=== PATIENT | female | born 1945 | race Hispanic/Latino ===

== ENCOUNTER 2018-01-28 23:30 | Emergency (ER) | payer OTHER ==
[2018-01-29] MEDS ORDERED: HYDRALAZINE HCL 20 MG/ML VIAL ONE (00:42)
[2018-01-29 00:50] LABS: Hematocrit 36.3 % (36.0-45.0); RBC Red Blood Cell Count 3.96 M/uL (3.86-4.86)
[2018-01-29 00:51] LABS: Absolute Lymphocytes (CBC) 2.3 K/uL (0.7-4.9); Absolute Monocytes 0.5 K/uL (0.1-1.3); Absolute Neutrophil 4.7 K/uL (1.8-8.0); Basophils % 1.3 % (0-1.3); Eosinophils % 3.2 % (0-4.4); Lymphocytes % 29.1 % (15.3-44.8); MCH 31.5 pg (27.0-35.0); MCV 91.8 fL (80-100); MPV 9.4 fL (7.6-11.3); Protime INR 0.89
[2018-01-29 01:30] LABS: Potassium 3.9 mEq/L (3.6-5.0)
--- NOTE | 2018-01-29 01:32 | EDPHYS ---
Physician Documentation [facility] Name: Eloise Funes Age: 72 yrs Sex: Female : 1945 Arrival Date: 01/28/2018 Time: 23:38 Bed 16 Private MD: Gilles Miller T ED Physician Homer Pruitt HPI: 01/29 00:39 This 72 yrs old Female presents to ER via EMS with complaints of High Blood tw4 Pressure. 00:39 The patient has elevated blood pressure and discovered this at home, with a home tw4 device. Onset: The symptoms/episode began/occurred just prior to arrival. Associated signs and symptoms: Pertinent positives: nausea, vertigo. Severity of symptoms: At its worst the blood pressure was severe, 240 mm Hg. The patient has experienced similar episodes in the past, a few times. Historical: - Allergies: 01/28 23:56 shrimp; ea - Home Meds: 23:56 metoprolol tartrate 100 mg Oral tab [Active]; Metformin Oral [Active]; Aspirin Oral ea [Active]; - PMHx: 23:56 Diabetes - IDDM; Hypertension; ea - PSHx: 23:56 None; ea - Immunization history:: Adult Immunizations up to date. - Social history:: Smoking status: Patient/guardian denies using tobacco. ROS: 01/29 00:39 Constitutional: Negative for fever, chills, and weight loss, Cardiovascular: Negative tw4 for chest pain, palpitations, and edema, Respiratory: Negative for shortness of breath, cough, wheezing, and pleuritic chest pain, Abdomen/GI: Negative for abdominal pain, nausea, vomiting, diarrhea, and constipation, Back: Negative for injury and pain, Skin: Negative for injury, rash, and discoloration. Neuro: Positive for dizziness, headache. Exam: 00:39 Constitutional: This is a well developed, well nourished patient who is awake, alert, tw4 and in no acute distress. Chest/axilla: Normal chest wall appearance and motion. Nontender with no deformity. No lesions are appreciated. Cardiovascular: Regular rate and rhythm with a normal S1 and S2. No gallops, murmurs, or rubs. Normal PMI, no JVD. No pulse deficits. Respiratory: Lungs have equal breath sounds bilaterally, clear to auscultation and percussion. No rales, rhonchi or wheezes noted. No increased work of breathing, no retractions or nasal flaring. Abdomen/GI: Soft, non-tender, with normal bowel sounds. No distension or tympany. No guarding or rebound. No evidence of tenderness throughout. Back: No spinal tenderness. No costovertebral tenderness. Full range of motion. MS/ Extremity: Pulses equal, no cyanosis. Neurovascular intact. Full, normal range of motion. Neuro: Awake and alert, GCS 15, oriented to person, place, time, and situation. Cranial nerves II-XII grossly intact. Motor strength 5/5 in all extremities. Sensory grossly intact. Cerebellar exam normal. Normal gait. Vital Signs: 01/28 23:30 BP 172 / 86; Pulse 72; Resp 19; Temp 98.8(O); Pulse Ox 100% on R/A; Weight 59.42 kg; ea Height 4 ft. 10 in. (147.32 cm); Pain 5/10; 01/29 01:28 BP 133 / 52; Pulse 68; Resp 18; Pulse Ox 99% on R/A; Pain 3/10; ea 01/28 23:30 Body Mass Index 27.38 (59.42 kg, 147.32 cm) ea MDM: 01/28 23:42 Patient medically screened. 01/29 01:33 Differential diagnosis: hypertensive crisis, Malignant HTN. Data reviewed: vital signs, tw4 nurses notes. Counseling: I had a detailed discussion with the patient and/or guardian regarding: the historical points, exam findings, and any diagnostic results supporting the discharge/admit diagnosis. Special discussion: I discussed with the patient/guardian in detail that at this point there is no indication for admission to the hospital. It is understood, however, that if the symptoms persist or worsen the patient needs to return immediately for re-evaluation. 01/29 00:32 Order name: Basic Metabolic Panel 01/29 00:32 Order name: BNP 01/29:32 Order name: CBC with Diff 01/29 00:32 Order name: Ckmb 01/29 00:32 Order name: CPK 01/29 00:32 Order name: LFT's 01/29 00:32 Order name: Magnesium 01/29 00:32 Order name: PT-INR 01/29 00:32 Order name: Ptt, Activated 01/29 00:32 Order name: Troponin (emerg Dept Use Only) 01/29 00:32 Order name: XRAY Chest (1 view) 01/29 00:32 Order name: EKG; Complete Time: 00:33 01/29 00:32 Order name: Cardiac monitoring; Complete Time: 01/29 00:32 Order name: EKG - Nurse/Tech; Complete Time: 01/29 00:32 Order name: IV Saline Lock; Complete Time: 01/29 00:32 Order name: Labs collected and sent; Complete Time: 01/29:32 Order name: O2 Per Protocol; Complete Time: 01/29 00:32 Order name: O2 Sat Monitoring; Complete Time: Administered Medications: 00:40 Drug: hydrALAZINE 10 mg Route: IV; Rate: bolus; Site: right antecubital; ea 01:30 Follow up: Response: No adverse reaction; Blood pressure is lowered; IV Status: ea Completed infusion Disposition: 01/29/18 01:31 Discharged to Home. Impression: Hypertension secondary to other renal disorders. - Condition is Stable. - Discharge Instructions: Hypertension, Hypertension, [id number], Vertigo, Ompp-oz-Atzo. - Prescriptions for Meclizine 25 mg Oral Tablet - take 1 tablet by ORAL route every 8 hours As needed; 30 tablet. Zofran 4 mg Oral Tablet - take 1 tablet by ORAL route every 12 hours As needed; 20 tablet. - Medication Reconciliation Form, Thank You Letter, Antibiotic Education, Prescription Opioid Use form. - Follow up: Gilels Miller MD; When: As needed; Reason: Recheck today's complaints, Continuance of care, Re-evaluation by your physician. - Problem is new. - Symptoms have improved. Signatures: Dispatcher [employer] EDTiff Polo, RN RN Homer Richter MD MD tw4 Corrections: (The following items were deleted from the chart) 01:54 01:31 01/29/2018 01:31 Discharged to Home. Impression: Hypertension secondary to other ea renal disorders. Condition is Stable. Forms are Medication Reconciliation Form, Thank You Letter, Antibiotic Education, Prescription Opioid Use. Follow up: Gilles Miller; When: As needed; Reason: Recheck today's complaints, Continuance of care, Re-evaluation by your physician. Problem is new. Symptoms have improved. tw4
--- NOTE | 2018-01-29 01:32 | ER ---
Nurse's Notes [facility] Name: Eloise Funes Age: 72 yrs Sex: Female : 1945 Arrival Date: 01/28/2018 Time: 23:38 Bed 16 Private MD: Gilles Miller T Diagnosis: Hypertension secondary to other renal disorders Presentation: 01/28 23:30 Presenting complaint: EMS states: Upon arrival pt complaining of dizziness, headache ea and high blood pressure. Pt reported she was just sitting on the cough when she started to feel dizzy. BP upon arrival was 230/100. Transition of care: patient was not received from another setting of care. Onset of symptoms was January 28, 2018. Risk Assessment: Do you want to hurt yourself or someone else? Patient reports no desire to harm self or others. Initial Sepsis Screen: Does the patient meet any 2 criteria? No. Patient's initial sepsis screen is negative. Does the patient have a suspected source of infection? No. Patient's initial sepsis screen is negative. Care prior to arrival: IV initiated. 20 GA, in the right antecubital area. 23:30 Method Of Arrival: EMS: [facility] ea 23:30 Acuity: DEIRDRE 3 ea Triage Assessment: 23:30 General: Appears uncomfortable, Behavior is cooperative, agitated. Pain: Complains of ea pain in headache Pain currently is 5 out of 10 on a pain scale. Quality of pain is described as pressure, Pain began 30 min ago. EENT: No signs and/or symptoms were reported regarding the EENT system. Neuro: Level of Consciousness is awake, alert, obeys commands, Oriented to person, place, time, situation. Cardiovascular: Heart tones S1 S2 present Patient's skin is warm and dry. Cardiovascular: Parent/caregiver reports patient has had chest pain, diaphoresis, nausea, shortness of breath, dizziness since Pt reports before calling EMS she was having nausea, SOB, chest pain and was sweating, Pt reports the only symptom she has now is "headache and a little bit of dizziness". Respiratory: Airway is patent Respiratory effort is even, unlabored, Respiratory pattern is regular, symmetrical, Breath sounds are clear bilaterally. GI: Abdomen is non-distended, Bowel sounds present X 4 quads. : No signs and/or symptoms were reported regarding the genitourinary system. Derm: Skin is pink, warm \\T\\ dry. Musculoskeletal: No signs and/or symptoms reported regarding the musculoskeletal system. Historical: - Allergies: 23:56 shrimp; ea - Home Meds: 23:56 metoprolol tartrate 100 mg Oral tab [Active]; Metformin Oral [Active]; Aspirin Oral ea [Active]; - PMHx: 23:56 Diabetes - IDDM; Hypertension; ea - PSHx: 23:56 None; ea - Immunization history:: Adult Immunizations up to date. - Social history:: Smoking status: Patient/guardian denies using tobacco. Screenin:57 Abuse screen: Denies threats or abuse. Nutritional screening: No deficits noted. ea Tuberculosis screening: No symptoms or risk factors identified. Fall Risk None identified. Assessment: 01/29 01:27 Reassessment: Patient and/or family updated on plan of care and expected duration. Pain ea level reassessed. Patient is alert, oriented x 3, equal unlabored respirations, skin warm/dry/pink. Patient states feeling better. Patient states symptoms have improved. 01:52 Reassessment: Patient and/or family updated on plan of care and expected duration. Pain ea level reassessed. Patient is alert, oriented x 3, equal unlabored respirations, skin warm/dry/pink. Discharge instructions given to patient, verbalized the understanding of instruction. Patient denies pain at this time. Patient states feeling better. Patient states symptoms have improved. Vital Signs: 01/28 23:30 BP 172 / 86; Pulse 72; Resp 19; Temp 98.8(O); Pulse Ox 100% on R/A; Weight 59.42 kg; ea Height 4 ft. 10 in. (147.32 cm); Pain 5/10; 01/29 01:28 BP 133 / 52; Pulse 68; Resp 18; Pulse Ox 99% on R/A; Pain 3/10; ea 01/28 23:30 Body Mass Index 27.38 (59.42 kg, 147.32 cm) ea ED Course: 01/28 23:30 Patient has correct armband on for positive identification. Placed in gown. Bed in low ea position. Call light in reach. Side rails up X2. 23:30 Arm band placed on right wrist. Patient placed in an exam room, on a stretcher, on ea manager truck, on pulse oximetry. EKG completed in triage. Results shown to MD. 23:38 Patient arrived in ED. am2 23:38 Gilles Miller MD is Private Physician. am2 23:42 Homer Pruitt MD is Attending Physician. tw4 23:50 Tiff Hearn, RN is Primary Nurse. ea 23:54 Triage completed. ea 01/29 00:47 X-ray completed. Portable x-ray completed in exam room. Patient tolerated procedure kw well. 00:49 XRAY Chest (1 view) In Process Unspecified. EDMS 00:50 Maintain EMS IV. Dressing intact. Good blood return noted. Site clean \\T\\ dry. Gauge \\T\\ ea site: 20 G to right AC. 01:31 Gilles Miller MD is Referral Physician. tw4 01:53 No provider procedures requiring assistance completed. IV discontinued, intact, ea bleeding controlled, Pressure dressing applied. Administered Medications: 00:40 Drug: hydrALAZINE 10 mg Route: IV; Rate: bolus; Site: right antecubital; ea 01:30 Follow up: Response: No adverse reaction; Blood pressure is lowered; IV Status: ea Completed infusion Outcome: :31 Discharge ordered by . tw4 01:53 Discharged to home via wheelchair, with family. ea 01:53 Condition: improved 01:53 Discharge instructions given to patient, Instructed on discharge instructions, follow up and referral plans. medication usage, Demonstrated understanding of instructions, follow-up care, medications, Prescriptions given X 2. 01:54 Patient left the ED. ea Signatures: Dispatcher [employer] EDMS Gale Boo Amanda 2 Tiff Hearn, Homer Hoover RN, ea, MD MD 4
[2018-01-29 01:37] LABS: Albumin 3.9 g/dL (3.2-5.5); Bilirubin Direct 0.1 mg/dL (0-0.2); Bilirubin Total 0.9 mg/dL (0.3-1.2); Protein, Total 6.7 g/dL (6.0-8.3)
[2018-01-29 01:39] LABS: CKMB Creatine Kinase MB 1.7 ng/ml (0.3-4.0)
[2018-01-29 01:58] VITALS: TEMP 98.8
[2018-01-29 01:59] VITALS: BP 133/52; O2SAT 99
--- NOTE | 2018-01-29 06:56 | EKG ---
Test Date: 2018-01-28 Test Time: 23:43:57 Cw Operator: LAISHA MEASUREMENT RESULTS: Intervals: Rate: 69 RI: 126 QRSD: 76 QT: 426 QTc: 456 [place]: P: 69 RI: 126 QRS: 37 T: 47 INTERPRETIVE STATEMENTS: Normal sinus rhythm Normal ECG Compared to ECG 08/17/2015 07:02:39 No significant changes Electronically Signed On 01-29-18 06:55:15 CDT by Maciel Yates
--- NOTE | 2018-01-29 08:19 | RAD REPORT ---
EXAM DESCRIPTION: RAD - Chest Single View - 01/29/2018 12:49 am CLINICAL HISTORY: Diabetes, hypertension COMPARISON: 12/11/2015 FINDINGS: Portable technique limits examination quality. The lungs are grossly clear. The heart is normal in size. No displaced fractures. IMPRESSION: No acute intrathoracic process suspected.
== END 2018-01-29 01:54 | disposition home or self-care (01) ==
LOC: ER 23:30
DX: I15.1 Hypertension secondary to other renal disorders (principal); E11.9 Type 2 diabetes mellitus without complications; Z79.82 Long term (current) use of aspirin; Z91.013 Allergy to seafood
CPT/HCPCS: 36415; 71045; 80048; 80076; 82550; 82553; 83735; 83880; 84484; 85025; 85610; 85730; 93005; 96365; 99284; J0360

== ENCOUNTER 2019-04-18 12:27 | Emergency (ER) | payer OTHER ==
--- NOTE | 2019-04-18 13:47 | RAD REPORT ---
EXAM DESCRIPTION: CT - Head Brain Wo Cont - 04/18/2019 1:40 pm CLINICAL HISTORY: Frontal headache, right-sided neck pain COMPARISON: CT head August 2015 TECHNIQUE: Axial 5 mm thick images of the head were obtained without IV contrast. All CT scans are performed using dose optimization technique as appropriate and may include automated exposure control or mA/KV adjustment according to patient size. FINDINGS: No intracranial hemorrhage, mass, edema or shift of mid-line structures. No acute infarcti on changes seen. No abnormal extra-axial fluid collections. Ventricles are normal. No significant atr ophy or chronic ischemic change. Physiologic calcifications and arterial calcifications are present. Mastoid air cells and visualized portions of the paranasal sinuses are clear. No acute bony findings. IMPRESSION: Negative non-contrast CT head examination for acute or significant finding. No significant change from 2014.
[2019-04-18 14:07] LABS: Absolute Lymphocytes (CBC) 1.9 K/uL (0.7-4.9); Basophils % 0.5 % (0-1.3); Hematocrit 40.1 % (36.0-45.0); Lymphocytes % 22.2 % (15.3-44.8); MPV 8.8 fL (7.6-11.3); RBC Red Blood Cell Count 4.25 M/uL (3.86-4.86)
--- NOTE | 2019-04-18 14:11 | RAD REPORT ---
EXAM DESCRIPTION: RAD - Chest Single View - 04/18/2019 2:04 pm CLINICAL HISTORY: Right-sided chest shoulder and neck pain COMPARISON: January 2018 TECHNIQUE: AP portable chest image was obtained 1400 hours . FINDINGS: Lungs are clear. Heart and vasculature are normal. No measurable pleural effusion and no p neumothorax. No acute bony abnormality seen. No acute aortic findings suspected. IMPRESSION: No acute cardiopulmonary process. No significant change from comparison.
[2019-04-18] MEDS ORDERED: ACETAMINOPHEN 500 MG TAB ONE (14:15)
--- NOTE | 2019-04-18 14:25 | EKG ---
Test Date: 2019-04-18 Test Time: 12:50:47 [place] Worker Helper: LUIS MEASUREMENT RESULTS: Intervals: Rate: 73 NH: 130 QRSD: 68 QT: 402 QTc: 442 [place]: P: 37 NH: 130 QRS: 27 T: 43 INTERPRETIVE STATEMENTS: Normal sinus rhythm Normal ECG Compared to ECG 01/28/2018 23:43:57 No significant changes Electronically Signed On 04-18-19 14:24:46 CDT by Maciel Yates
[2019-04-18 14:32] LABS: BUN Blood Urea Nitrogen 21 mg/dL (7-18); Bicarbonate 27 mmol/L (21-32); Glucose Level 193 mg/dL (74-106); Potassium 4.6 mmol/L (3.5-5.1); Sodium Level 143 mmol/L (136-145); Troponin (Emerg Dept Use Only) < 0.02 ng/mL (0.0-0.045)
--- NOTE | 2019-04-18 15:33 | ER ---
Nurse's Notes [facility] Name: Eloise Funes Age: 73 yrs Sex: Female : 1945 Arrival Date: 04/18/2019 Time: 12:30 Bed 17 Private MD: Gilles Miller T Diagnosis: Hypertensive Urgency Presentation: 04/18 12:53 Presenting complaint: Patient states: was washing dishes and all of a sudden felt iw pain/air in right side of her neck, felt similar to swallowing a cold drink, then it was hard to breath, started coughing, and had a headache to frontal area, her neighbor came and checked her BP and it was 222/81, also started feeling midsternal chest pain, has hx of anxiety attacks but this felt different, pt still feels pain to right side of neck now. Transition of care: patient was not received from another setting of care. Onset of symptoms was April 18, 2019. Risk Assessment: Do you want to hurt yourself or someone else? Patient reports no desire to harm self or others. Initial Sepsis Screen: Does the patient meet any 2 criteria? No. Patient's initial sepsis screen is negative. Does the patient have a suspected source of infection? No. Patient's initial sepsis screen is negative. Care prior to arrival: None. 12:53 Method Of Arrival: Ambulatory iw 12:53 Acuity: DEIRDRE 3 iw Historical: - Allergies: 13: shrimp; iw 13: PENICILLINS; iw - Home Meds: 13:01 aspirin 81 mg oral TbEC once daily [Active]; metformin 500 mg oral tab 2 times per day iw [Active]; atorvastatin 20 mg oral tab 1 tab once daily [Active]; carvedilol 6.25 mg oral tab 1 tab 2 times per day [Active]; valsartan 320 mg oral tab 1 tab once daily [Active]; - PMHx: 13:01 Diabetes - NIDDM; Hypertension; Anxiety; "mini stroke"; iw - PSHx: 13: Hysterectomy; Cholecystectomy; iw - Immunization history:: Adult Immunizations not up to date. - Social history:: Smoking status: Patient/guardian denies using tobacco. - Ebola Screening: : Patient negative for fever greater than or equal to 101.5 degrees Fahrenheit, and additional compatible Ebola Virus Disease symptoms Patient denies exposure to infectious person Patient denies travel to an Ebola-affected area in the 21 days before illness onset No symptoms or risks identified at this time. Screenin:05 Abuse screen: Denies threats or abuse. Denies injuries from another. Nutritional aj1 screening: No deficits noted. Tuberculosis screening: No symptoms or risk factors identified. Assessment: 13:05 General: Appears in no apparent distress. uncomfortable, Behavior is calm, cooperative, aj1 appropriate for age. Pain: Complains of pain in face. Neuro: Level of Consciousness is awake, alert, obeys commands, Oriented to person, place, time, situation, Moves all extremities. Full function Speech is normal, Facial symmetry appears normal, Reports dizziness, headache. Cardiovascular: Patient's skin is warm and dry. Rhythm is sinus rhythm. Respiratory: Airway is patent Respiratory effort is even, unlabored, Respiratory pattern is regular, symmetrical. GI: No signs and/or symptoms were reported involving the gastrointestinal system. : No signs and/or symptoms were reported regarding the genitourinary system. EENT: No signs and/or symptoms were reported regarding the EENT system. Derm: No signs and/or symptoms reported regarding the dermatologic system. Skin is pink, warm \\T\\ dry. normal. Musculoskeletal: No signs and/or symptoms reported regarding the musculoskeletal system. Circulation, motion, and sensation intact. 14:05 Reassessment: Patient appears in no apparent distress at this time. No changes from aj1 previously documented assessment. Patient and/or family updated on plan of care and expected duration. Pain level reassessed. Patient is alert, oriented x 3, equal unlabored respirations, skin warm/dry/pink. 15:08 Reassessment: Patient appears in no apparent distress at this time. No changes from aj1 previously documented assessment. Patient and/or family updated on plan of care and expected duration. Pain level reassessed. Patient is alert, oriented x 3, equal unlabored respirations, skin warm/dry/pink. 16:10 Reassessment: Patient appears in no apparent distress at this time. No changes from aj1 previously documented assessment. Patient and/or family updated on plan of care and expected duration. Pain level reassessed. Patient is alert, oriented x 3, equal unlabored respirations, skin warm/dry/pink. Vital Signs: 12:58 BP 208 / 75; Pulse 84; Resp 16 S; Temp 98.4(TE); Pulse Ox 98% on R/A; Pain 8/10; iw 13:32 BP 172 / 59; Pulse 66; Resp 18; Pulse Ox 98% ; aj1 14:45 BP 166 / 42; Pulse 66; Resp 18; Pulse Ox 97% on R/A; aj1 15:45 BP 161 / 51; Pulse 66; Resp 18; Pulse Ox 100% ; aj1 16:00 BP 142 / 57; Pulse 68; Resp 18; Pulse Ox 100% ; aj1 16:15 BP 145 / 60; Pulse 66; Resp 18; Pulse Ox 100% on R/A; aj1 16:30 BP 142 / 61; Pulse 71; Resp 17; Pulse Ox 100% on R/A; aj1 NIH Stroke Scale Scores: 14:32 NIHSS Score: 0 jr8 ED Course: 12:30 Patient arrived in ED. as 12:31 Gilles Miller MD is Private Physician. as 12:56 Rey Guallpa [facility]. jr8 12:56 Av Almazan MD is Attending Physician. jr8 12:58 Triage completed. iw 12:58 Arm band placed on. iw 13:05 Patient has correct armband on for positive identification. Bed in low position. Call aj1 light in reach. Side rails up X 1. 13:05 athletic monitor on. Pulse ox on. NIBP on. aj1 13:05 No provider procedures requiring assistance completed. aj1 13:[address] via stretcher. vm2 13:31 Skye Alonzo, MARITZA is Primary Nurse. aj1 13:41 CT Head Brain wo Cont In Process Unspecified. EDMS 13:55 Initial lab(s) drawn, by me, sent to lab. Inserted saline lock: 22 gauge in right tm3 antecubital area, using aseptic technique. 14:02 X-ray completed. Portable x-ray completed in exam room. Patient tolerated procedure jb2 well. 14:07 XRAY Chest (1 view) In Process Unspecified. EDMS 15:32 Gilles Miller MD is Referral Physician. jr8 Administered Medications: 14:18 Drug: Tylenol 1000 mg Route: PO; aj1 16:44 Follow up: Response: No adverse reaction aj1 15:45 Drug: hydrALAZINE 10 mg Route: IV; Rate: calculated rate; Site: right antecubital; olesya 16:44 Follow up: Response: No adverse reaction; Blood pressure is lowered; IV Status: aj1 Completed infusion Outcome: 15:32 Discharge ordered by MD. fan 16:44 Patient left the ED. olesya NIH Stroke Scale - NIH Stroke Score Date: 04/18/2019 Time: 14:32 Total Score = 0 1a. Level of Consciousness (LOC) - 0(Alert) 1b. Level of Consciousness (LOC) (Year \\T\\ Age) - 0(Both) 1c. LOC Commands (Open \\T\\ Closes Eyes/Skilled Labor) - 0(Both) 2. Best Gaze (Lateral Gaze Paresis) - 0(Normal) 3. Visual Field Loss - 0(No visual loss) 4. Facial Palsy - 0(Normal) 5a. Left Arm: Motor (10-second hold) - 0(No drift) 5b. Right Arm: Motor (10-second hold) - 0(No drift) 6a. Left Leg: Motor (5-second hold - always test supine) - 0(No drift) 6b. Right Leg: Motor (5-second hold - always test supine) - 0(No drift) 7. Limb Ataxia (finger/nose \\T\\ heel/patterson - test with eyes open) - 0(Absent) 8. Sensory Loss (pinprick arms/legs/face) - 0(Normal) 9. Best Language: Aphasia (description/naming/reading) - 0(No aphasia) 10. Dysarthria (speech clarity - read or repeat words) - 0(Normal) 11. Extinction and Inattention (visual/tactile/auditory/spatial/personal) - 0(No abnormality) Initials: meng Signatures: Dispatcher [employer] Skye Vega, RN RN aj1 Arnel Tejada Jesse jb2 Martinez, Amelia as Williams, Irene, RN RN iw Roszak, Josh, PA PA jr8 Juju Romero
--- NOTE | 2019-04-18 15:34 | EDPHYS ---
Physician Documentation [facility] Name: Eloise Funes Age: 73 yrs Sex: Female : 1945 Arrival Date: 04/18/2019 Time: 12:30 Bed 17 Private MD: Gilles Miller T ED Physician Av Almazan HPI: 04/18 14:32 This 73 yrs old Female presents to ER via Ambulatory with complaints of High jr8 Blood Pressure, Headache, Neck Problem. 14:32 The patient has elevated blood pressure and discovered this at home. Onset: The jr8 symptoms/episode began/occurred acutely, today. Associated signs and symptoms: Pertinent positives: dizziness, headache, visual changes, sweating . Severity of symptoms: At its worst the blood pressure was moderate, in the emergency department the blood pressure is improved. The patient has not experienced similar symptoms in the past. The patient has not recently seen a physician. Patient stated that she was outside with family. Started to feel sweaty, dizzy, nauseated, had headache, and neck pain. Went inside to sit down. Family checked BP and found it to be in the 200s systolic. Came to ED for evaluation. Denies CP or shortness of breath . Historical: - Allergies: 13:01 shrimp; iw 13:01 PENICILLINS; iw - Home Meds: 13:01 aspirin 81 mg oral TbEC once daily [Active]; metformin 500 mg oral tab 2 times per day iw [Active]; atorvastatin 20 mg oral tab 1 tab once daily [Active]; carvedilol 6.25 mg oral tab 1 tab 2 times per day [Active]; valsartan 320 mg oral tab 1 tab once daily [Active]; - PMHx: 13:01 Diabetes - NIDDM; Hypertension; Anxiety; "mini stroke"; iw - PSHx: 13:01 Hysterectomy; Cholecystectomy; iw - Immunization history:: Adult Immunizations not up to date. - Social history:: Smoking status: Patient/guardian denies using tobacco. - Ebola Screening: : Patient negative for fever greater than or equal to 101.5 degrees Fahrenheit, and additional compatible Ebola Virus Disease symptoms Patient denies exposure to infectious person Patient denies travel to an Ebola-affected area in the 21 days before illness onset No symptoms or risks identified at this time. ROS: 14:32 Eyes: Negative for injury, pain, redness, and discharge, ENT: Negative for injury, jr8 pain, and discharge, Cardiovascular: Negative for chest pain, palpitations, and edema, Respiratory: Negative for shortness of breath, cough, wheezing, and pleuritic chest pain, Abdomen/GI: Negative for abdominal pain, nausea, vomiting, diarrhea, and constipation, Back: Negative for injury and pain, MS/Extremity: Negative for injury and deformity, Skin: Negative for injury, rash, and discoloration. 14:32 Neck: Positive for pain at rest, Negative for pain with movement, stiffness, swelling, swollen nodes, tenderness, bony tenderness. 14:32 Neuro: Positive for dizziness, headache. Exam: 14:32 Eyes: Pupils equal round and reactive to light, extra-ocular motions intact. Lids and jr8 lashes normal. Conjunctiva and sclera are non-icteric and not injected. Cornea within normal limits. Periorbital areas with no swelling, redness, or edema. ENT: Nares patent. No nasal discharge, no septal abnormalities noted. Tympanic membranes are normal and external auditory canals are clear. Oropharynx with no redness, swelling, or masses, exudates, or evidence of obstruction, uvula midline. Mucous membranes moist. Neck: Trachea midline, no thyromegaly or masses palpated, and no cervical lymphadenopathy. Supple, full range of motion without nuchal rigidity, or vertebral point tenderness. No Meningismus. Cardiovascular: Regular rate and rhythm with a normal S1 and S2. No gallops, murmurs, or rubs. Normal PMI, no JVD. No pulse deficits. Respiratory: Lungs have equal breath sounds bilaterally, clear to auscultation and percussion. No rales, rhonchi or wheezes noted. No increased work of breathing, no retractions or nasal flaring. Abdomen/GI: Soft, non-tender, with normal bowel sounds. No distension or tympany. No guarding or rebound. No evidence of tenderness throughout. Back: No spinal tenderness. No costovertebral tenderness. Full range of motion. Skin: Warm, dry with normal turgor. Normal color with no rashes, no lesions, and no evidence of cellulitis. MS/ Extremity: Pulses equal, no cyanosis. Neurovascular intact. Full, normal range of motion. Neuro: Awake and alert, GCS 15, oriented to person, place, time, and situation. Cranial nerves II-XII grossly intact. Motor strength 5/5 in all extremities. Sensory grossly intact. Cerebellar exam normal. Normal gait. Vital Signs: 12:58 BP 208 / 75; Pulse 84; Resp 16 S; Temp 98.4(TE); Pulse Ox 98% on R/A; Pain 8/10; iw 13:32 BP 172 / 59; Pulse 66; Resp 18; Pulse Ox 98% ; aj1 14:45 BP 166 / 42; Pulse 66; Resp 18; Pulse Ox 97% on R/A; aj1 15:45 BP 161 / 51; Pulse 66; Resp 18; Pulse Ox 100% ; aj1 16:00 BP 142 / 57; Pulse 68; Resp 18; Pulse Ox 100% ; aj1 16:15 BP 145 / 60; Pulse 66; Resp 18; Pulse Ox 100% on R/A; aj1 16:30 BP 142 / 61; Pulse 71; Resp 17; Pulse Ox 100% on R/A; aj1 NIH Stroke Scale Scores: 14:32 NIHSS Score: 0 [facility] MDM: 13:24 Patient medically screened. [facility] 14:32 Data reviewed: vital signs, nurses notes, lab test result(s), EKG, radiologic studies, [facility] CT scan, plain films. Data interpreted: Pulse oximetry: on room air is 98 %. Interpretation: normal. Counseling: I had a detailed discussion with the patient and/or guardian regarding: the historical points, exam findings, and any diagnostic results supporting the discharge/admit diagnosis, lab results, radiology results, the need for outpatient follow up, a family practitioner, to return to the emergency department if symptoms worsen or persist or if there are any questions or concerns that arise at home. ED course: Patient feeling much better. BP reduced without need for medication. Labs and imaging without acute finding. Advised patient to rest and make sure she takes her medication on time every day since she had not been doing that. If she were to have it again or things were to worsen, to come back immediately for further evaluation. Patient good with this plan . 04/18 13:24 Order name: Basic Metabolic Panel; Complete Time: 14:36 [facility] 04/18 13:24 Order name: CBC with Diff; Complete Time: 14:26 [facility] 04/18 13:24 Order name: Troponin (emerg Dept Use Only); Complete Time: 14:36 04/18 13:24 Order name: XRAY Chest (1 view); Complete Time: 14:26 04/18 13:25 Order name: CT Head Brain wo Cont; Complete Time: 14:26 04/18 13:24 Order name: EKG; Complete Time: 13:26 04/18 13:24 Order name: Cardiac monitoring; Complete Time: 14:18 04/18 13:24 Order name: EKG - Nurse/Tech; Complete Time: 14:18 04/18 13:24 Order name: IV Saline Lock; Complete Time: 14:18 04/18 13:24 Order name: Labs collected and sent; Complete Time: 14:18 04/18 13:24 Order name: O2 Per Protocol; Complete Time: 14:18 04/18 13:24 Order name: O2 Sat Monitoring; Complete Time: 14:45 Administered Medications: 14:18 Drug: Tylenol 1000 mg Route: PO; aj1 16:44 Follow up: Response: No adverse reaction aj1 15:45 Drug: hydrALAZINE 10 mg Route: IV; Rate: calculated rate; Site: right antecubital; aj1 16:44 Follow up: Response: No adverse reaction; Blood pressure is lowered; IV Status: aj1 Completed infusion Disposition: 04/18/19 15:32 Discharged to Home. Impression: Hypertensive Urgency . - Condition is Stable. - Discharge Instructions: Hypertension. - Medication Reconciliation Form, Thank You Letter, Antibiotic Education, Prescription Opioid Use form. - Follow up: Gilles Miller MD; When: 2 - 3 days; Reason: Recheck today's complaints, Continuance of care, Re-evaluation by your physician. - Problem is new. - Symptoms have improved. NIH Stroke Scale - NIH Stroke Score Date: 04/18/2019 Time: 14:32 Total Score = 0 1a. Level of Consciousness (LOC) - 0(Alert) 1b. Level of Consciousness (LOC) (Year \\T\\ Age) - 0(Both) 1c. LOC Commands (Open \\T\\ Closes Eyes/Assistant Nurse Manager) - 0(Both) 2. Best Gaze (Lateral Gaze Paresis) - 0(Normal) 3. Visual Field Loss - 0(No visual loss) 4. Facial Palsy - 0(Normal) 5a. Left Arm: Motor (10-second hold) - 0(No drift) 5b. Right Arm: Motor (10-second hold) - 0(No drift) 6a. Left Leg: Motor (5-second hold - always test supine) - 0(No drift) 6b. Right Leg: Motor (5-second hold - always test supine) - 0(No drift) 7. Limb Ataxia (finger/nose \\T\\ heel/patterson - test with eyes open) - 0(Absent) 8. Sensory Loss (pinprick arms/legs/face) - 0(Normal) 9. Best Language: Aphasia (description/naming/reading) - 0(No aphasia) 10. Dysarthria (speech clarity - read or repeat words) - 0(Normal) 11. Extinction and Inattention (visual/tactile/auditory/spatial/personal) - 0(No abnormality) Initials: jrMario Addendum: 04/21/2019 09:24 Co-signature as Attending Physician, Av Almazan MD I agree with the kdr assessment and plan of care. Signatures: Dispatcher [employer] EDMS Skye Alonzo RN RN aj1 Av Almazan MD MD kdr Nighat Carranza RN RN iw Rey Guallpa PA PA jr8 Corrections: (The following items were deleted from the chart) 04/18 16:44 15:32 04/18/2019 15:32 Discharged to Home. Impression: Hypertensive Urgency . aj1 Condition is Stable. Forms are Medication Reconciliation Form, Thank You Letter, Antibiotic Education, Prescription Opioid Use. Follow up: Gilles Miller; When: 2 - 3 days; Reason: Recheck today's complaints, Continuance of care, Re-evaluation by your physician. Problem is new. Symptoms have improved. jr8
[2019-04-18] MEDS ORDERED: HYDRALAZINE HCL 20 MG/ML VIAL ONE (15:36)
[2019-04-18 17:56] VITALS: TEMP 98.4
[2019-04-18 17:59] VITALS: O2SAT 100
[2019-04-18 18:02] VITALS: BP 142/61
== END 2019-04-18 16:44 | disposition home or self-care (01) ==
LOC: ER 12:27
DX: I16.0 Hypertensive urgency (principal); I10 Essential (primary) hypertension; F41.9 Anxiety disorder, unspecified; E11.9 Type 2 diabetes mellitus without complications; Z79.82 Long term (current) use of aspirin; Z88.0 Allergy status to penicillin; Z91.013 Allergy to seafood
CPT/HCPCS: 96365; 93005; 85025; 80048; 36415; 84484; 70450; 71045; 99285; J0360

== ENCOUNTER 2021-02-07 21:51 | Inpatient (IN) | payer OTHER ==
[2021-02-07] MEDS ORDERED: ONDANSETRON 4 MG/2 ML VIAL ONE (22:45)
[2021-02-07] MEDS ORDERED: MORPHINE 4 MG/ML SYR ONE (22:45)
[2021-02-07 22:52] LABS: Protime INR 0.92
[2021-02-07 23:07] LABS: ALT/SGPT 24 U/L (12-78); AST/SGOT 18 U/L (15-37); Albumin 3.9 g/dL (3.4-5.0); Alkaline Phosphatase 100 U/L (45-117); BUN Blood Urea Nitrogen 21 mg/dL (7-18); Bicarbonate 26 mmol/L (21-32); Bilirubin Direct 0.1 mg/dL (0-0.2); Bilirubin Total 0.7 mg/dL (0.2-1.0); Glucose Level 179 mg/dL (74-106); Magnesium 2.2 mg/dL (1.8-2.4); NT PRO-BNP 758 pg/mL (<450); Potassium 4.4 mmol/L (3.5-5.1); Protein, Total 7.9 g/dL (6.4-8.2); Sodium Level 141 mmol/L (136-145); Troponin (Emerg Dept Use Only) < 0.02 ng/mL (0.0-0.045)
[2021-02-07 23:08] LABS: Absolute Lymphocytes (CBC) 2.2 K/uL (0.7-4.9); Basophils % 0.6 % (0-1.3); Hematocrit 38.4 % (36.0-45.0); Lymphocytes % 37.1 % (15.3-44.8); MPV 8.9 fL (7.6-11.3); RBC Red Blood Cell Count 4.19 M/uL (3.86-4.86)
--- NOTE | 2021-02-08 00:40 | ER ---
Nurse's Notes [facility] Name: Eloise Funes Age: 75 yrs Sex: Female : 1945 Arrival Date: 02/07/2021 Time: 21:52 Bed 26 Private MD: Diagnosis: Chest pain, unspecified Presentation: 02/07 22:03 Chief complaint: Patient states: she started having chest pain approx 20 mins prior to bb arrival with a headache pt's daughter states pt's blood pressure is not under control at this time. Coronavirus screen: At this time, the client does not indicate any symptoms associated with coronavirus-19. Ebola Screen: No symptoms or risks identified at this time. Initial Sepsis Screen: Does the patient meet any 2 criteria? No. Patient's initial sepsis screen is negative. Does the patient have a suspected source of infection? No. Patient's initial sepsis screen is negative. Risk Assessment: Do you want to hurt yourself or someone else? Patient reports no desire to harm self or others. Onset of symptoms was February 07, 2021. 22:03 Method Of Arrival: Wheelchair bb 22:03 Acuity: DEIRDRE 2 bb Historical: - Allergies: 22:07 PENICILLINS; bb 22:07 shrimp; bb - Home Meds: 22:07 atorvastatin 20 mg Oral tab 1 tab once daily [Active]; carvedilol 6.25 mg Oral tab 1 bb tab 2 times per day [Active]; metformin 500 mg Oral tab 2 times per day [Active]; aspirin 81 mg Oral TbEC once daily [Active]; olmesartan oral 40 mg oral 1 tab once daily [Active]; - PMHx: 22:07 "mini stroke"; Anxiety; Diabetes - NIDDM; Hypertension; bb - PSHx: 22:07 Hysterectomy; Cholecystectomy; bb - Immunization history:: Adult Immunizations up to date. - Social history:: Smoking status: Patient denies any tobacco usage or history of. Screenin:20 Abuse screen: Denies threats or abuse. Denies injuries from another. Nutritional wh screening: No deficits noted. Tuberculosis screening: No symptoms or risk factors identified. Fall Risk None identified. Assessment: 22:17 General: Appears in no apparent distress. uncomfortable, Behavior is calm, cooperative, wh appropriate for age. Pain: Complains of pain in chest Pain radiates to face Quality of pain is described as pressure, Pain began suddenly. Neuro: Level of Consciousness is awake, alert, obeys commands, Oriented to person, place, time, situation, Appropriate for age [employer] are equal bilaterally Moves all extremities. Speech is normal, Facial symmetry appears normal, Intact. Cardiovascular: Heart tones S1 S2 Rhythm is sinus rhythm. Respiratory: Airway is patent Respiratory effort is even, unlabored, Respiratory pattern is regular, symmetrical. GI: Abdomen is flat, non-distended. : No signs and/or symptoms were reported regarding the genitourinary system. EENT: No signs and/or symptoms were reported regarding the EENT system. Derm: Skin is intact, is healthy with good turgor, Skin is pink, warm \\T\\ dry. normal. Musculoskeletal: Circulation, motion, and sensation intact. 23:00 Reassessment: Patient appears in no apparent distress at this time. Patient and/or jb4 family updated on plan of care and expected duration. Pain level reassessed. Patient is alert, oriented x 3, equal unlabored respirations, skin warm/dry/pink. 02/08 00:00 Reassessment: Patient appears in no apparent distress at this time. Patient and/or jb4 family updated on plan of care and expected duration. Pain level reassessed. Patient is alert, oriented x 3, equal unlabored respirations, skin warm/dry/pink. 01:00 Reassessment: Patient appears in no apparent distress at this time. Patient and/or jb4 family updated on plan of care and expected duration. Pain level reassessed. Patient is alert, oriented x 3, equal unlabored respirations, skin warm/dry/pink. Vital Signs: 02/07 22:03 BP 216 / 79; Pulse 83; Resp 18 S; Temp 98.9(O); Pulse Ox 99% on R/A; Weight 60.33 kg bb (R); Height 4 ft. 11 in. (149.86 cm) (R); Pain 8/10; 23:00 BP 188 / 73; Pulse 80; Resp 18; Pulse Ox 97% on R/A; jb4 02/08 00:00 BP 144 / 57; Pulse 78; Resp 17; Pulse Ox 98% on R/A; jb4 01:00 BP 171 / 71; Pulse 98; Resp 22; Pulse Ox 98% on R/A; jb4 02/07 22:03 Body Mass Index 26.86 (60.33 kg, 149.86 cm) bb ED Course: 02/07 21:52 Patient arrived in ED. cf2 22:03 Homer Pruitt MD is Attending Physician. tw4 22:05 Triage completed. bb 22:07 Arm band placed on Patient placed in an exam room, on a stretcher, on cardiac cath tech, bb on pulse oximetry. EKG completed in triage. Results shown to MD. 22:12 Jc Zacarias, RN is Primary Nurse. 22:20 Patient has correct armband on for positive identification. Placed in gown. Bed in low wh position. Call light in reach. Side rails up X 1. tapper balance wheel screw hole on. Pulse ox on. NIBP on. 22:20 Inserted saline lock: 20 gauge in right antecubital area, using aseptic technique. wh Blood collected. Patient maintains SpO2 saturation greater than 95% on room air. 22:39 XRAY Chest (1 view) In Process Unspecified. EDFL 02/08 00:38 Brie Martin MD is Hospitalizing Provider. tw4 01:27 No provider procedures requiring assistance completed. Patient admitted, IV remains in jb4 place. Administered Medications: 02/07 22:27 Drug: morphine 4 mg {Note: RASS 0.} Route: IVP; Site: right antecubital; 22:29 Drug: Zofran (Ondansetron) 4 mg Route: IVP; Site: right antecubital; 02/08 01:41 Drug: morphine 2 mg Route: IVP; Site: right antecubital; [facility] Outcome: 00:39 Decision to Hospitalize by Provider. tw4 01:27 Admitted to ER Hold. Please see [facility] for further documentation. jb4 01:27 Condition: stable 01:27 Discharge instructions given to patient, family, Instructed on the need for admit, Demonstrated understanding of instructions. 19:51 Admitted to Med/surg accompanied by nurse, family with patient, via wheelchair, room wh 229, with chart, Report called to Dennis Collins RN 19:51 Condition: stable 19:51 Instructed on the need for admit. 19:54 Patient left the ED. mw2 Signatures: Dispatcher [facility] Anna Marie Goff, RN RN bb Italo Ojeda RN RN jb4 Rell, Jc RN RN Homer Pruitt MD MD tw4 Shyla, Sharla 2 Sean Trejo [facility]
--- NOTE | 2021-02-08 00:40 | EDPHYS ---
Physician Documentation [facility] Name: Eloise Funes Age: 75 yrs Sex: Female : 1945 Arrival Date: 02/07/2021 Time: 21:52 Bed 26 Private MD: ED Physician Homer Pruitt HPI: 02/08 01:15 This 75 yrs old Female presents to ER via Wheelchair with complaints of Chest tw4 Pain, Headache. 01:15 The patient or guardian reports chest pain that is located primarily in the anterior tw4 chest wall. The patient or guardian reports chest pain that is located primarily in the anterior chest wall, left. Onset: just prior to arrival, today. The pain does not radiate. Associated signs and symptoms: The patient has no apparent associated signs or symptoms. Duration: The patient or guardian reports a single episode. Severity of pain: At its worst the pain was mild in the emergency department the pain is unchanged. Historical: - Allergies: 02/07 22:07 PENICILLINS; bb 22:07 shrimp; bb - Home Meds: 22:07 atorvastatin 20 mg Oral tab 1 tab once daily [Active]; carvedilol 6.25 mg Oral tab 1 bb tab 2 times per day [Active]; metformin 500 mg Oral tab 2 times per day [Active]; aspirin 81 mg Oral TbEC once daily [Active]; olmesartan oral 40 mg oral 1 tab once daily [Active]; - PMHx: 22:07 "mini stroke"; Anxiety; Diabetes - NIDDM; Hypertension; bb - PSHx: 22:07 Hysterectomy; Cholecystectomy; bb - Immunization history:: Adult Immunizations up to date. - Social history:: Smoking status: Patient denies any tobacco usage or history of. ROS: 02/08 01:15 Respiratory: Negative for shortness of breath, cough, wheezing, and pleuritic chest tw4 pain, Abdomen/GI: Negative for abdominal pain, nausea, vomiting, diarrhea, and constipation, Back: Negative for injury and pain, MS/Extremity: Negative for injury and deformity, Skin: Negative for injury, rash, and discoloration. Cardiovascular: Positive for chest pain, Negative for edema, orthopnea, palpitations. Exam: 01:20 Constitutional: This is a well developed, well nourished patient who is awake, alert, tw4 and in no acute distress. Head/Face: Normocephalic, atraumatic. Chest/axilla: Normal chest wall appearance and motion. Nontender with no deformity. No lesions are appreciated. Cardiovascular: Regular rate and rhythm with a normal S1 and S2. No gallops, murmurs, or rubs. Normal PMI, no JVD. No pulse deficits. Respiratory: Lungs have equal breath sounds bilaterally, clear to auscultation and percussion. No rales, rhonchi or wheezes noted. No increased work of breathing, no retractions or nasal flaring. Abdomen/GI: Soft, non-tender, with normal bowel sounds. No distension or tympany. No guarding or rebound. No evidence of tenderness throughout. Skin: Warm, dry with normal turgor. Normal color with no rashes, no lesions, and no evidence of cellulitis. MS/ Extremity: Pulses equal, no cyanosis. Neurovascular intact. Full, normal range of motion. Neuro: Awake and alert, GCS 15, oriented to person, place, time, and situation. Cranial nerves II-XII grossly intact. Motor strength 5/5 in all extremities. Sensory grossly intact. Cerebellar exam normal. Normal gait. Vital Signs: 02/07 22:03 BP 216 / 79; Pulse 83; Resp 18 S; Temp 98.9(O); Pulse Ox 99% on R/A; Weight 60.33 kg bb (R); Height 4 ft. 11 in. (149.86 cm) (R); Pain 8/10; 23:00 BP 188 / 73; Pulse 80; Resp 18; Pulse Ox 97% on R/A; jb4 02/08 00:00 BP 144 / 57; Pulse 78; Resp 17; Pulse Ox 98% on R/A; jb4 01:00 BP 171 / 71; Pulse 98; Resp 22; Pulse Ox 98% on R/A; 4 02/07 22:03 Body Mass Index 26.86 (60.33 kg, 149.86 cm) bb MDM: 02/07 22:03 Patient medically screened. 02/08 01:20 Data reviewed: vital signs, nurses notes. [facility] 02/07 22:04 Order name: Basic Metabolic Panel; Complete Time: 23:28 tw 02/07 23:28 Interpretation: Normal except: CL 108; GLUC 179; BUN 21; GFR 55. tw4 02/07 22:04 Order name: CBC with Diff; Complete Time: 23:28 02/07 23:28 Interpretation: Within normal limits. 02/07 22:04 Order name: LFT's; Complete Time: 23:28 02/07 23:28 Interpretation: Normal except: GLOB 4.0; A/G 1.0. 02/07 22:04 Order name: Magnesium; Complete Time: 23:28 02/07 23:29 Interpretation: Within normal limits: MG 2.2. 02/07 22:04 Order name: NT PRO-BNP; Complete Time: 23:28 02/07 23:28 Interpretation: Normal except: NT PRO-BNP 758. 02/07 22:04 Order name: PT-INR; Complete Time: 23:28 02/07 23:29 Interpretation: Within normal limits: PT 10.6. 02/07 22:04 Order name: Troponin (emerg Dept Use Only); Complete Time: 23:28 [facility] 02/07 23:29 Interpretation: Within normal limits: TROPED < 0.02. tw4 02/08 01:56 Order name: Urine Dipstick-Ancillary EDLA 02/08 02:14 Order name: COVID-19 : Document "Date of Symptom Onset" if Symptomatic. 2 02/08 02:21 Order name: CORONAVIRUS EDLA 02/08 03:58 Order name: Troponin I EDLA 02/08 05:35 Order name: SARS-COV-2 RT PCR EDLA 02/08 05:40 Order name: CBC with Automated Diff EDLA 02/08 06:00 Order name: Comprehensive Metabolic Panel EDLA 02/07 22:04 Order name: XRAY Chest (1 view) tw4 02/07 22:04 Order name: EKG; Complete Time: 22:06 02/07 22:04 Order name: Cardiac monitoring; Complete Time: 22:17 tw4 02/07 22:04 Order name: EKG - Nurse/Tech; Complete Time: 22:17 4 02/08 01:43 Order name: CONS Physician Consult EDLA 02/08 06:00 Order name: Lipid Profile EDLA 02/08 06:00 Order name: T4 Free EDLA 02/08 06:00 Order name: Thyroid Stimulating Hormone EDLA 02/08 08:12 Order name: Troponin I EDLA 02/08 09:38 Order name: Glucose, Ancillary Testing EDLA 02/08 11:37 Order name: CT EDLA 02/08 11:46 Order name: Glucose, Ancillary Testing EDLA 02/08 16:02 Order name: Glucose, Ancillary Testing EDLA 02/07 22:04 Order name: IV Saline Lock; Complete Time: 22:17 tw4 02/07 22:04 Order name: Labs collected and sent; Complete Time: 22:17 tw4 02/07 22:04 Order name: O2 Per Protocol; Complete Time: 22:17 tw4 02/07 22:04 Order name: O2 Sat Monitoring; Complete Time: 22:17 tw4 Administered Medications: 02/07 22:27 Drug: morphine 4 mg {Note: RASS 0.} Route: IVP; Site: right antecubital; 22:29 Drug: Zofran (Ondansetron) 4 mg Route: IVP; Site: right antecubital; 02/08 01:41 Drug: morphine 2 mg Route: IVP; Site: right antecubital; [facility] Disposition: 02/08/21 00:39 Hospitalization ordered by Brie Martin for Inpatient Admission. Preliminary diagnosis is Chest pain, unspecified. - Bed requested for Telemetry/MedSurg (Inpatient). - Status is Inpatient Admission. mw2 - Condition is Stable. - Problem is new. - Symptoms have improved. Signatures: Dispatcher [employer] [facility] Anna Marie Goff RN RN bb Martinez, Eric em1 Desi Barrera RN RN Italo Ojeda RN RN [facility] Jc Zacarias RN RN Homer Pruitt MD MD tw4 Sharla [place] mw2 Corrections: (The following items were deleted from the chart) 00:58 00:39 Hospitalization Ordered by Brie Martin MD for Inpatient Admission. Preliminary cg diagnosis is Chest pain, unspecified. Bed requested for Telemetry/MedSurg (Inpatient). Status is Inpatient Admission. Condition is Stable. Problem is new. Symptoms have improved. tw4 18:06 00:58 02/08/2021 00:39 Hospitalization Ordered by Brie Martin MD for Inpatient em1 Admission. Preliminary diagnosis is Chest pain, unspecified. Bed requested for [facility] ER HOLD. Status is Inpatient Admission. Condition is Stable. Problem is new. Symptoms have improved. cg 19:54 18:06 02/08/2021 00:39 Hospitalization Ordered by Brie Martin MD for Inpatient mw2 Admission. Preliminary diagnosis is Chest pain, unspecified. Bed requested for Telemetry/MedSurg (Inpatient). Status is Inpatient Admission. Condition is Stable. Problem is new. Symptoms have improved. em1
[2021-02-08] MEDS ORDERED: MORPHINE 2 MG/ML SYR ONE (01:55)
[2021-02-08 01:56] LABS: Urine Blood Negative (Negative); Urine Glucose Trace (Negative); Urine Protein 1+ (Negative); Urine Specific Gravity >=1.030 (1.005-1.030)
[2021-02-08 02:06] VITALS: BMI 26.9
[2021-02-08] MEDS ORDERED: MORPHINE 2 MG/ML SYR IV PRN (02:20)
[2021-02-08] MEDS ORDERED: HYDRALAZINE HCL 20 MG/ML VIAL IV PRN (02:20)
[2021-02-08] MEDS ORDERED: ONDANSETRON 4 MG/2 ML VIAL IV PRN (02:20)
--- NOTE | 2021-02-08 03:14 | P.HP ---
Certification for Inpatient Patient admitted to: Observation With expected LOS: <2 Midnights Patient will require the following post-hospital care: None Practitioner: I am a practitioner with admitting privileges, knowledge of patient current condition, hospital course, and medical plan of care. Services: Services provided to patient in accordance with Admission requirements found in Title 42 Section 412.3 of the Code of Federal Regulations <ClintonChung Yudi - Last Filed: 02/08/21 03:07> Patient History Date of Service: 02/08/21 Primary Care Provider: Paul Reason for admission: chest pain History of Present Illness: Ms. Funes is a 75 yo F with HTN, DM, HLD, hypothyroidism here today for 8/10 sharp sternal chest pain beginning at 930pm while she was walking to her house. The pain worsened while she was watching TV. She reports headache, SOB and palpitations. Denies nausea, vomiting, vision changes. She sees her watch crystal edge grinder once a year, last visit with normal findings. Her PCP recently discontinued her BP medications and decreased her statin and started levothyroxine. On arrival, her BP was 216/79. - Past Medical/Surgical History Has patient received pneumonia vaccine in the past: Yes Diabetic: Yes -: HTN -: NIDDM -: Anxiety -: Problems wth diarrhea -: hypothyroidism -: Hgh Cholesterol -: R. knee torn ligament -: R. knee arthritis -: Hysterectomy -: Cholecystectomy -: Tubal ligation -: Carpal Tunnel rt hand - Family History Father -: Heart disease Mother -: Hypertension, Diabetes - Social History Smoking Status: Never smoker Alcohol use: No CD- Drugs: No Caffeine use: No Place of Residence: Home <Chung Alonzo - Last Filed: 02/08/21 03:07> Date of Service: 02/08/21 <Brie Martin - Last Filed: 02/09/21 11:04> Allergies Penicillins Allergy (Mild, Verified 06/10/15 13:13) SKIN REACTION AT INJECTION SITE iodine Allergy (Verified 08/17/15 15:18) Hives/Rash shrimp Allergy (Mild, Uncoded 06/10/15 13:13) Hives/Rash Home Medications: Atorvastatin Calcium [Lipitor*] 20 mg PO BEDTIME 02/08/21 Levothyroxine Sodium [Euthyrox] 75 mcg PO ACHS 02/08/21 Metformin HCl [Metformin HCl ER] 500 mg PO BID 02/08/21 Olmesartan Medoxomil 40 mg PO DAILY 02/08/21 carvediloL [Carvedilol] 6.25 mg PO BID 02/08/21 carvediloL [Coreg*] 12.5 mg PO BID #60 tab 02/09/21 Review of Systems General: Unremarkable Eyes: Unremarkable ENT: Unremarkable Respiratory: Shortness of Breath, As per HPI Cardiovascular: Chest Pain, Palpitations, As per HPI Gastrointestinal: Unremarkable Genitourinary: Unremarkable Musculoskeletal: Unremarkable Integumentary: Unremarkable Neurological: Other (headache) Lymphatics: Unremarkable <Chung Alonzo - Last Filed: 02/08/21 03:07> Physical Examination - Physical Exam General: Alert, In no apparent distress, Oriented x3, Cooperative, Other (tearful from headache) HEENT: Atraumatic, Normocephalic, PERRLA, Mucous membr. moist/pink, EOMI, Sclerae nonicteric Neck: Supple, 2+ carotid pulse no bruit, JVD not distended, No Thyromegaly, No LAD Respiratory: Clear to auscultation bilaterally, Normal air movement Cardiovascular: No edema, Normal pulses, Regular rate/rhythm, Normal S1 S2, No gallops, No rubs, No murmurs Capillary refill: <2 Seconds Gastrointestinal: Normal bowel sounds, Soft and benign, Non-distended, No asci jh, No tenderness, No masses, No rebound, No guarding Musculoskeletal: No clubbing, No swelling, No contractures, No erythema, No tenderness, No warmth Integumentary: No rashes, No breakdown, No significant lesion, No tenderness/swelling, No erythema, No warmth, No cyanosis Neurological: Normal gait, Normal speech, Normal strength at 5/5 x4 extr, Normal tone, Sensation intact, Cranial nerves 3-12 intact, Normal affect Lymphatics: No axilla or inguinal lymphadenopathy - Studies Laboratory Data (last 24 hrs) 02/07/21 22:10: PT 10.6, INR 0.92 02/07/21 22:10: WBC 6.00, Hgb 13.0, Hct 38.4, Plt Count 225 02/07/21 22:10: Sodium 141, Potassium 4.4, BUN 21 H, Creatinine 0.99, Glucose 179 H, Magnesium 2.2, Total Bilirubin 0.7, AST 18, ALT 24, Alkaline Phosphatase 100 <Chung Alonzo - Last Filed: 02/08/21 03:07> Assessment and Plan - Problems (Diagnosis) (1) HLD (hyperlipidemia) Current Visit: Yes Status: Chronic Qualifiers: Hyperlipidemia type: unspecified Qualified Code(s): E78.5 - Hyperlipidemia, unspecified (2) Hypothyroidism Current Visit: Yes Status: Chronic Qualifiers: Hypothyroidism type: unspecified Qualified Code(s): E03.9 - Hypothyroidism, unspecified (3) Chest pain Onset Date: 08/04/14 Current Visit: No Status: Acute Qualifiers: Chest pain type: unspecified Qualified Code(s): R07.9 - Chest pain, unspecified (4) Diabetes Current Visit: No Status: Chronic Qualifiers: Diabetes mellitus type: type 2 Diabetes mellitus moth exterminator insulin use: without moth exterminator use Diabetes mellitus complication status: without complication Qualified Code(s): E11.9 - Type 2 diabetes mellitus without complications (5) HTN (hypertension) Current Visit: No Status: Chronic Qualifiers: Hypertension type: essential hypertension Qualified Code(s): I10 - Essential (primary) hypertension (6) Hypertensive emergency Onset Date: 08/18/15 Current Visit: No Status: Acute - Plan cardiology consulted, trend trops and EKG hydralazine PRN for BP control daily ASA, BB, statin lipid panel and thyroid panel pending morphine and NTG prn DVT ppx Discharge Plan: Home Plan to discharge in: 24 Hours - Advance Directives Does patient have a Living Will: No Does patient have a Durable POA for Healthcare: No - Code Status/Comfort Care Code Status Assessed: Yes (full code) Critical Care: No Time Spent Managing Pts Care (In Minutes): 70 <Chung Alonzo - Last Filed: 02/08/21 03:07> Date of Service: 02/08/21 Chart reviewed. Agree with plan of care as mentioned above. Will do a stress test in a.m. and rule out. Troponins are elevated. Cardiology consultation appreciated. Also 1 control blood pressure will try to get that better controlled. Will reassess in a.m.. <Brie Martin - Last Filed: 02/09/21 11:04>
[2021-02-08 05:37] LABS: Absolute Lymphocytes (CBC) 1.6 K/uL (0.7-4.9); Basophils % 0.5 % (0-1.3); Hematocrit 31.9 % (36.0-45.0); Lymphocytes % 23.9 % (15.3-44.8); MPV 8.6 fL (7.6-11.3); RBC Red Blood Cell Count 3.48 M/uL (3.86-4.86)
[2021-02-08 05:52] LABS: Albumin 3.3 g/dL (3.4-5.0); Bilirubin Total 0.7 mg/dL (0.2-1.0); Potassium 4.3 mmol/L (3.5-5.1); Protein, Total 6.5 g/dL (6.4-8.2); Thyroid Stimulating Hormone 0.106 uIU/mL (0.360-3.740)
[2021-02-08] MEDS: METOPROLOL TAR 25 MG TAB PO SCH ×2 (06:00→17:50)
[2021-02-08] MEDS: INSULIN -REGULAR HUMAN 50 UNIT/0.5 ML ML SQ SCH ×5 (07:30→21:00)
--- NOTE | 2021-02-08 07:43 | RAD REPORT ---
EXAM DESCRIPTION: [place] Single View02/07/2021 10:39 pm CLINICAL HISTORY: Chest pain COMPARISON: 2019 FINDINGS: Interstitial pattern appears mildly more prominent bilaterally within the lungs. The heart is normal size IMPRESSION: Prominence of the interstitial pattern bilaterally may indicate mild interstitial pulmon misa edema or pneumonitis/atypical pneumonia
[2021-02-08] MEDS: ASPIRIN EC 81 MG TAB PO SCH (09:21)
[2021-02-08] MEDS: ENOXAPARIN 40 MG/0.4 ML SQ SCH (09:21)
[2021-02-08] MEDS ORDERED: ENOXAPARIN 40 MG/0.4 ML SQ ONE (09:36)
[2021-02-08] MEDS ORDERED: ASPIRIN EC 81 MG TAB PO ONE (09:36)
[2021-02-08] MEDS ORDERED: METOPROLOL TAR 50 MG TAB PO ONE (11:05)
[2021-02-08] MEDS ORDERED: ALPRAZOLAM 0.5 MG TABLET PO ONE (11:06)
[2021-02-08] MEDS ORDERED: ALPRAZOLAM 0.5 MG TABLET ONE (11:32)
[2021-02-08] MEDS ORDERED: METOPROLOL TAR 50 MG TAB ONE ×2 (11:32→18:02)
--- NOTE | 2021-02-08 11:36 | RAD REPORT ---
EXAM DESCRIPTION: CT - Head Brain Wo Cont - 02/08/2021 11:23 am CLINICAL HISTORY: Headache COMPARISON: 2019 TECHNIQUE: Computed axial tomography of the head was obtained. IV contrast was not requested. All CT scans are performed using dose optimization technique as appropriate and may include automated exposure control or mA/KV adjustment according to patient size. FINDINGS: An intracranial bleed is not seen . The ventricles are normal in caliber. No extra-axial fluid collection is noted. Fluid within the sinuses/ mastoids is not seen. IMPRESSION: No acute intracranial abnormality is seen. If patient's symptoms persist MRI of the bra in would be recommended.
[2021-02-08] MEDS ORDERED: INSULIN -REGULAR HUMAN 50 UNIT/0.5 ML ML ONE (16:47)
[2021-02-08] MEDS ORDERED: METOPROLOL TAR 25 MG TAB ONE (18:09)
[2021-02-08] MEDS: ACETAMINOPHEN 500 MG TAB PO PRN (20:29)
[2021-02-08] MEDS ORDERED: ATORVASTATIN 10 MG TAB PO SCH (21:00)
[2021-02-09] MEDS: METOPROLOL TAR 25 MG TAB PO SCH (06:00)
[2021-02-09 06:01] LABS: Absolute Lymphocytes (CBC) 1.6 K/uL (0.7-4.9); Hematocrit 34.8 % (36.0-45.0); Lymphocytes % 31.4 % (15.3-44.8); MPV 8.3 fL (7.6-11.3); RBC Red Blood Cell Count 3.79 M/uL (3.86-4.86)
[2021-02-09 06:20] LABS: Albumin 3.4 g/dL (3.4-5.0); Bilirubin Total 0.9 mg/dL (0.2-1.0); Magnesium 2.2 mg/dL (1.8-2.4); Phosphorus 4.6 mg/dL (2.5-4.9); Potassium 4.4 mmol/L (3.5-5.1); Protein, Total 6.6 g/dL (6.4-8.2)
[2021-02-09] MEDS: INSULIN -REGULAR HUMAN 50 UNIT/0.5 ML ML SQ SCH ×3 (07:30→16:30)
[2021-02-09] MEDS ORDERED: REGADENOSON 0.4 MG/5 ML SYR IV ONE (07:58)
[2021-02-09] MEDS: ASPIRIN EC 81 MG TAB PO SCH (09:00)
[2021-02-09] MEDS: ENOXAPARIN 40 MG/0.4 ML SQ SCH (09:00)
[2021-02-09] MEDS: HYDROMORPHONE HCL 0.5 MG/0.5 ML INJ IV PRN ×2 (09:14→16:29)
[2021-02-09] MEDS: NITROGLYCERIN 0.4 MG/TAB SL PRN ×2 (09:20→13:33)
[2021-02-09 10:32] VITALS: O2SAT 94
[2021-02-09] MEDS ORDERED: LOSARTAN POTASSIUM 50 MG TABLET PO STA (11:00)
--- NOTE | 2021-02-09 11:06 | P.DS ---
Discharge Date: 02/09/21 Primary Care Provider: Paul Disposition: ROUTINE DISCHARGE Discharge Condition: GOOD Reason for Admission: chest pain Consultations: Cardiology Brief History of Present Illness: Ms. Funes is a 75 yo F with HTN, DM, HLD, hypothyroidism here today for 8/10 sharp sternal chest pain beginning at 930pm while she was walking to her house. The pain worsened while she was watching TV. She reports headache, SOB and palpitations. Denies nausea, vomiting, vision changes. She sees her charcoal unloader once a year, last visit with normal findings. Her PCP recently discontinued her BP medications and decreased her statin and started levothyroxine. On arrival, her BP was 216/79. Hospital Course: Patient did well during hospital stay. Patient's chest pain is resolved. Patient with no reversible ischemia on stress test. Patient is currently doing much better. At this time, patient is stable for discharge home. Patient will need a follow-up as an outpatient with Cardiology. Patient need to continue with strict blood pressure control. Vital Signs/Physical Exam: Temp Pulse Resp BP Pulse Ox 98.0 F 71 18 188/75 H 100 02/09/21 08:00 02/09/21 09:20 02/09/21 09:44 02/09/21 09:20 02/09/21 09:44 General: Alert, In no apparent distress, Oriented x3 Laboratory Data at Discharge: WBC 5.00 K/uL (4.3-10.9) D 02/09/21 05:39 Hgb 12.0 g/dL (12.0-15.0) 02/09/21 05:39 Hct 34.8 % (36.0-45.0) L 02/09/21 05:39 Plt Count 206 K/uL (152-406) 02/09/21 05:39 PT 10.6 SECONDS (9.5-12.5) 02/07/21 22:10 INR 0.92 02/07/21 22:10 Sodium 141 mmol/L (136-145) 02/09/21 05:39 Potassium 4.4 mmol/L (3.5-5.1) 02/09/21 05:39 BUN 19 mg/dL (7-18) H 02/09/21 05:39 Creatinine 0.91 mg/dL (0.55-1.3) 02/09/21 05:39 Glucose 156 mg/dL (74-106) H 02/09/21 05:39 Phosphorus 4.6 mg/dL (2.5-4.9) 02/09/21 05:39 Magnesium 2.2 mg/dL (1.8-2.4) 02/09/21 05:39 Total Bilirubin 0.9 mg/dL (0.2-1.0) 02/09/21 05:39 AST 20 U/L (15-37) 02/09/21 05:39 ALT 33 U/L (12-78) 02/09/21 05:39 Alkaline Phosphatase 68 U/L (45-117) 02/09/21 05:39 Troponin I 0.41 ng/mL (0.0-0.045) H 02/08/21 07:16 Triglycerides 253 mg/dL (<150) H 02/08/21 05:00 Cholesterol 126 mg/dL (<200) 02/08/21 05:00 HDL Cholesterol 35 mg/dL (40-60) L 02/08/21 05:00 Cholesterol/HDL Ratio 3.60 02/08/21 05:00 Home Medications: Atorvastatin Calcium [Lipitor*] 20 mg PO BEDTIME 02/08/21 Levothyroxine Sodium [Euthyrox] 75 mcg PO ACHS 02/08/21 Metformin HCl [Metformin HCl ER] 500 mg PO BID 02/08/21 Olmesartan Medoxomil 40 mg PO DAILY 02/08/21 carvediloL [Carvedilol] 6.25 mg PO BID 02/08/21 carvediloL [Coreg*] 12.5 mg PO BID #60 tab 02/09/21 New Medications: carvediloL [Coreg*] 12.5 mg PO BID #60 tab Physician Discharge Instructions: OK TO DC IV AND DC HOME FOLLOW-UP WITH PRIMARY CARE PROVIDER IN 1-2 WEEKS FOLLOW-UP WITH CARDIOLOGY IN 1-2 WEEKS RETURN TO THE ER IF symptoms worsen CALL or TEXT DR. POSADAS AT [phone] IF ANY QUESTIONS REGARDING HOSPITAL STAY. PLEASE CALL THE FLOOR AT [phone] IF ANY MEDICATION OR NURSING QUESTIONS. Diet: AHA Activity: Fall precautions Followup: Laurent Wright MD [ACTIVE - CAN ADMIT] - Dennis Camilo MD [ASSOCIATE-ACTIVE - CAN ADMIT] - Gilles Miller MD [Primary Care Provider] - Time spent managing pt's care (in minutes): 35
--- NOTE | 2021-02-09 12:02 | EKG ---
Test Date: 2021-02-07 Test Time: 22:04:08 Nutritionists: MEASUREMENT RESULTS: Intervals: Rate: 85 TN: 128 QRSD: 70 QT: 392 QTc: 466 [place]: P: 63 TN: 128 QRS: 71 T: 66 INTERPRETIVE STATEMENTS: Normal sinus rhythm Normal ECG Compared to ECG 04/18/2019 12:50:47 No significant changes Electronically Signed On 02-09-21 11:54:31 CDT by Laurent Wright
[2021-02-09 13:08] VITALS: TEMP 98.3
[2021-02-09] MEDS ORDERED: carvediloL 12.5 MG TAB PO ONE (13:41)
[2021-02-09] MEDS ORDERED: VALSARTAN 160 MG TAB PO ONE (13:41)
[2021-02-09] MEDS: ACETAMINOPHEN 500 MG TAB PO PRN (13:52)
--- NOTE | 2021-02-09 15:10 | RAD REPORT ---
EXAM DESCRIPTION: NM - Rest Stress Cardiac Imaging - 02/09/2021 2:52 pm CLINICAL HISTORY: Chest pain COMPARISON: Stress test July 2014 TECHNIQUE: The patient was administered 10.4 mCi of Tc 99m Sestamibi prior to resting SPECT imaging of the heart. The patient was then administered 30.8 mCi of Tc 99m Sestamibi following exercise or ph armacologic stress. Multiplanar SPECT images were reviewed. FINDINGS: The end diastolic volume is 50 ml, the end systolic volume is 17 ml, and the ejection frac tion is 67 %. Ventricular volumes and ejection fraction are very similar to the 2014 study. No stress-induced ischemic changes identifiable. At mildly diminished activity anteroseptal wall near the apex is not clearly different between rest and stress imaging. This may be a breast attenuation artifact or a small focus of scarring. This was not clearly seen on the prior study. No other signifi cant findings noted. IMPRESSION: No stress-induced ischemic change identifiable. Small focus of decreased activity anteroseptal wall may be breast attenuation artifact rather than sc arring. Ventricular volumes and ejection fraction are normal range and very similar to the 2014 study.
[2021-02-09 18:06] VITALS: BP 130/60
[2021-02-09] MEDS ORDERED: ATORVASTATIN 20 MG TAB PO SCH (21:00)
[2021-02-09] MEDS ORDERED: METFORMIN ER 500 MG TAB PO SCH (21:00)
[2021-02-09] MEDS ORDERED: carvediloL 6.25 MG TAB PO SCH (21:00)
[2021-02-10] MEDS ORDERED: LEVOTHYROXINE SOD 0.075 MG TAB PO SCH (06:30)
--- NOTE | 2021-02-10 08:12 | TREADPHA ---
DX: CHEST PAIN Date of Study: 02/09/2021 Ht: 4' 11 " Wt: 133 lb 0 oz Consulting Physician: ASHISH MEDICATIONS: TYLENOL, METFORMIN, CARVEDILOL, LIPITOR, COREG, EUTHYROX, OLMESARTAN HISTORY: 75 YEAR OLD FEMALE, CONPLAINTS OF CHEST PAIN AND SHORTNESS OF BREATH. HISTORY OF HYPERTENSION, HYPERLIPIDEMIA, DIABETES, NON-SMOKER, NON-DRINKER PHYSICIAL EXAMINATION: RESTING B.P.: 170/76 RESTING H.R.: 88 RESTING EKG: NORMAL PROTOCOL: PHARMACOLOGIC EXERCISE TIME: 3:30 B.P. AT PEAK STRESS: 130/67 IMPRESSION: LEXISCAN INJECTED PER PROTOCOL FOLLOWED BY CARDIOLITE. SEE NUCLEAR MEDICINE REPORT. NO SUPRAVENTRICULAR TACHYCARDIA, VENTRICULAR TACHYCARDIA, PREMATURE ATRIAL COMPLEXES, PREMATURE VENTRICULAR COMPLEXES. PATIENT REPORT CHEST PAIN FOUR OUT OF TEN ON PAIN SCALE DURING PROCEDURE.
[2021-02-10] MEDS ORDERED: HOME MED 1 EA UNK (Olmesartan Medoxomil [Olmesartan Medoxomil] 40 MG Tablet) PO SCH (09:00)
[2021-02-10] MEDS ORDERED: VALSARTAN 160 MG TAB PO SCH (09:00)
--- NOTE | 2021-02-13 10:18 | CON ---
Date of Consultation: 02/08/2021 Reason For Consultation: Chest pain. History Of Present Illness: Ms. Funes is 75. Has a history of TIAs, anxiety, diabetes, hypertension. She came in with chest pain and headache. Her chest pain was anterior, nonradiating, nonexertional . No nausea, vomiting, diaphoresis, PND, orthopnea, pedal edema, palpitations, or syncope. Denied a ny fever or chills. When she came in, her blood pressure was 216/79. Allergies: SHE IS ALLERGIC TO PENICILLIN AND SHRIMP. Medications: At home include Lipitor, carvedilol 6.25 b.i.d., metformin, olmesartan 40 mg daily. Past Medical History: As stated above. Review of Systems: Negative. Social History: Negative. Family History: Noncontributory. Physical Examination: Vital Signs: Initial blood pressure of 216/79. She was in sinus rhythm, afebrile. HEENT: Negative. Neck: Supple without any bruit, lymphadenopathy, JVD, or thyromegaly. Chest: Clear to auscultation and percussion. Cardiac: Revealed a regular rhythm and rate with an S4 gallop. No murmurs or rubs. Abdomen: Benign. Extremities: Revealed no clubbing, cyanosis, or edema. Diagnostic Data: Showed a glucose of 133. Hemoglobin was 10.9. White count was normal. Creatinine was normal. Her troponin 0.41 with a BNP of 758. TSH was 0.106. Impression And Plan: Atypical chest pain, more probably secondary to hypertensive crisis which proba kimberly would cause the troponin and BNP to be elevated. The patient's blood pressure is better now. Sohail cooper is symptoms free now. A stress test is pending. We will see what that shows before making any fur ther decisions. I think when she goes home, I think we need to add hydrochlorothiazide to her olmesa rtan. I think we need to increase her carvedilol to 12.5 or 25 mg b.i.d. I think she needs to be se en as an outpatient pretty soon. Continue her other regimen otherwise. We will see what the stress that shows before making any further decisions. SOBEIDA/WALLACE Voice ID: [id number] Report ID: [id number]
== END 2021-02-09 17:47 | disposition home or self-care (01) | DRG 305 ==
LOC: ER 21:51 → ERHOLD 02-08 01:42 → 2ND 02-08 20:12
PROVIDERS: ADMIT Hospitalist; ATTEND Hospitalist
DX: I16.1 Hypertensive emergency (principal); E78.5 Hyperlipidemia, unspecified; E03.9 Hypothyroidism, unspecified; E11.9 Type 2 diabetes mellitus without complications; I10 Essential (primary) hypertension; Z88.0 Allergy status to penicillin; Z91.013 Allergy to seafood; Z79.84 Long term (current) use of oral hypoglycemic drugs; Z79.899 Other long term (current) drug therapy; Z86.73 Personal history of transient ischemic attack (TIA), and cerebral infarction without residual deficits; Z90.710 Acquired absence of both cervix and uterus; Z90.49 Acquired absence of other specified parts of digestive tract; Z98.51 Tubal ligation status; Z88.8 Allergy status to other drugs, medicaments and biological substances; Z79.890 Hormone replacement therapy; Z20.822 Contact with and (suspected) exposure to COVID-19
CPT/HCPCS: 36415; 70450; 71045; 78452; 80048; 80053; 80061; 80076; 81003; 82947; 83735; 83880; 84100; 84439; 84443; 84484; 85025; 85610; 93005; 93017; 94760; 96374; 96375; 99285; A9500; J1170; J1650; J2270; J2405; J2785; U0003

== ENCOUNTER 2021-03-22 06:45 | Day surgery (SDC) | payer OTHER ==
--- NOTE | 2021-03-18 11:48 | RAD REPORT ---
EXAM DESCRIPTION: RAD - Chest Pa And Lat (2 Views) - 03/18/2021 11:27 am CLINICAL HISTORY: pre-op cath procedure COMPARISON: Chest Single View dated 02/07/2021; Chest Single View dated 04/18/2019; Chest Single View d ated 01/29/2018; Chest Single View dated 12/11/2015 FINDINGS: No evidence of edema or pneumonia. The heart size is within normal limits.No acute osseou s abnormality. No significant pleural effusions or pneumothorax. Surgical clips in the right upper qu adrant. IMPRESSION: No acute cardiopulmonary disease.
[2021-03-18 12:13] LABS: Absolute Lymphocytes (CBC) 1.8 K/uL (0.7-4.9); Basophils % 0.4 % (0-1.3); Hematocrit 36.5 % (36.0-45.0); Lymphocytes % 22.3 % (15.3-44.8); MPV 8.8 fL (7.6-11.3)
[2021-03-18 12:25] LABS: Protime INR 1.02
[2021-03-18 12:26] LABS: Potassium 4.6 mmol/L (3.5-5.1)
--- NOTE | 2021-03-19 08:03 | EKG ---
Test Date: 2021-03-18 Test Time: 10:29:45 Strip Feeder: LUIS MEASUREMENT RESULTS: Intervals: Rate: 63 MS: 128 QRSD: 68 QT: 446 QTc: 456 [place]: P: 83 MS: 128 QRS: 45 T: 73 INTERPRETIVE STATEMENTS: Normal sinus rhythm Nonspecific ST abnormality Abnormal ECG Compared to ECG 02/07/2021 22:04:08 ST (T wave) deviation now present Electronically Signed On 03-19-21 08:03:00 CDT by Laurent Wright
[2021-03-22] MEDS ORDERED: LIDOCAINE 1% 20 ML MDV ONE ×2 (07:07→08:07)
[2021-03-22] MEDS ORDERED: HEPA 1000U/500MLS 1,000 UNIT/500 ML BAG IV ONE (07:07)
[2021-03-22] MEDS ORDERED: NA CHLORIDE 0.9% 500 ML ONE (07:14)
[2021-03-22] MEDS ORDERED: MIDAZOLAM HCL 2 MG/2 ML INJ ONE ×2 (07:38→08:03)
[2021-03-22] MEDS ORDERED: ATROPINE SULF 1 MG/10 ML SYR IV ONE (07:39)
[2021-03-22] MEDS ORDERED: METHYLPREDNISOLONE 125 MG INJ ONE (07:39)
[2021-03-22] MEDS ORDERED: FENTANYL CITR 100 MCG/2 ML ONE (07:39)
[2021-03-22] MEDS ORDERED: cloNIDine HCL 0.1 MG TAB ONE ×2 (10:36→11:12)
[2021-03-22 11:00] VITALS: TEMP 97.4
[2021-03-22] MEDS ORDERED: HYDRALAZINE HCL 20 MG/ML VIAL ONE (11:12)
[2021-03-22 12:15] VITALS: BP 130/42; O2SAT 100
--- NOTE | 2021-03-22 17:16 | OP ---
Surgeon: Laurent Wright MD Peoplesoft Programmer: Elenita Herbie Rosales. Admitted on 03/22/2021 as an outpatient to the bed laborer for selective bilateral carotid angiogram. Indications: Ms. Funes is 75. Has had a history of hypertension, dyslipidemia, renal artery stenosis in the past, diabetes, documented carotid artery stenosis that has worsened by Doppler, brought to [facility] bed laborer today as an outpatient. Description Of Procedure: Prepped and draped in the routine sterile fashion, given Versed and fentan yl for sedation. A 6-Serbian sheath was introduced in the right common femoral artery successfully wi thout any complications. Angiography there was normal except for the common femoral was small in siz e. Angio-Seal was used to close the case. A JR4 catheter was used to select the right common caroti d and the left common carotid artery separately. Both common carotids were normal. There was modera te to severe plaquing in the right external carotid, a 60% ostial right internal carotid and 40% osti al left internal carotid. Anesthesia: Total conscious sedation was 45 minutes. Complications: None. Blood Loss: 5 cc. Postoperative Diagnosis: Moderate cerebrovascular disease. Plan: To plan is to continue medical therapy. I will increase her Lipitor dose from 10 mg to 40 mg. She will go home today after 2 hours of bedrest and see me in the office in 2 weeks. SOBEIDA/WALLACE Voice ID: [id number] Report ID: [id number]
== END 2021-03-22 11:36 | disposition home or self-care (01) ==
LOC: CCL 06:45
DX: I65.23 Occlusion and stenosis of bilateral carotid arteries (principal); I10 Essential (primary) hypertension; E78.2 Mixed hyperlipidemia; E11.9 Type 2 diabetes mellitus without complications; Z88.0 Allergy status to penicillin; Z91.041 Radiographic dye allergy status; Z82.49 Family history of ischemic heart disease and other diseases of the circulatory system
CPT/HCPCS: 93005; 85025; 80048; 36415; 85610; 82947 ×2; 85730; 71046; 36222; C1893; C1760; J0360; J2250 ×2; J3010; J7040; J1644; J2930

== ENCOUNTER 2023-05-23 16:48 | Emergency (ER) | payer OTHER ==
[2023-05-23 17:27] LABS: Absolute Lymphocytes (CBC) 2.7 K/uL (0.7-4.9); Hematocrit 37.7 % (36.0-45.0); Lymphocytes % 35.5 % (15.3-44.8); MCV 93.6 fL (80-100); Platelets 192 thou/uL (152-406); RBC Red Blood Cell Count 4.02 M/uL (3.86-4.86)
[2023-05-23 17:43] LABS: Albumin 4.2 g/dL (3.4-5.0); Bilirubin Total 0.8 mg/dL (0.2-1.0); Potassium 5.2 mEq/L (3.5-5.1); Protein, Total 7.8 g/dL (6.4-8.2)
[2023-05-23 17:48] LABS: Specific Gravity 1.017 (1.005-1.030); Urine Bacteria None Seen /HPF (<20); Urine Bilirubin NEGATIVE (Negative); Urine Blood Negative (Negative); Urine Clarity Clear (Clear); Urine Color Light-Yellow (Yellow); Urine Glucose 4+ (Negative); Urine Mucus Slight /HPF (None Seen); Urine Protein NEGATIVE (Negative); Urine RBC <5 /HPF (None Seen); Urine Urobilinogen Normal (Normal)
--- NOTE | 2023-05-23 17:52 | RAD REPORT ---
EXAM DESCRIPTION: RAD - Chest Pa And Lat (2 Views) - 05/23/2023 5:28 pm CLINICAL HISTORY: Congestion;Cough COMPARISON: Chest Pa And Lat (2 Views) dated 03/18/2021; Chest Single View dated 02/07/2021; Chest Sing le View dated 04/18/2019; Chest Single View dated 01/29/2018 TECHNIQUE: PA and lateral views of the chest were obtained. FINDINGS: The lungs are clear. Heart size is normal and central vasculature is within normal limits. No pleural effusion or pneumothorax seen. No acute bony finding noted. IMPRESSION: No acute cardiopulmonary process.
--- NOTE | 2023-05-23 19:23 | EDPHYS ---
Physician Documentation [facility] Name: Eloise Funes Age: 77 yrs Sex: Female : 1945 Arrival Date: 05/23/2023 Time: 16:48 Bed 7 Private MD: ED Physician Richard Varela HPI: 05/23 16:59 This 77 yrs old Female presents to ER via Ambulatory with complaints of Flank ms3 Pain, Diarrhea, Abdominal Pain. 16:59 77-year-old female with past medical history of anxiety, diabetes, hypertension ms3 presents for cough, congestion that began on and diarrhea that began last night. Patient denies fevers, chills, shortness of breath, nausea, vomiting. Patient states her discomfort is a 7/10. Patient denies alleviating or inciting factors. Historical: - Allergies: 16:55 PENICILLINS; iw 16:55 shrimp; iw - Home Meds: 16:55 metformin 500 mg Oral tab 2 times per day [Active]; olmesartan 40 mg oral tablet daily iw [Active]; nebivolol 2.5 mg oral tablet daily [Active]; levothyroxine 75 mcg tablet daily [Active]; Farxiga 5 mg oral tablet daily [Active]; doxazosin 2 mg oral tablet daily [Active]; atorvastatin 10 mg oral tablet every evening [Active]; aspirin 81 mg Oral capsule daily [Active]; - PMHx: 16:55 "mini stroke"; Anxiety; Diabetes - NIDDM; Hypertension; iw - PSHx: 16:55 Cholecystectomy; hysterectomy; Tonsillectomy; iw - Immunization history:: Adult Immunizations up to date. - Social history:: Smoking status: Patient denies any tobacco usage or history of. ROS: 16:59 Constitutional: Negative for fever, and chills. Neck: Negative for injury, pain, and ms3 swelling, Cardiovascular: Negative for chest pain, and palpitations. 16:59 Back: Negative for injury and pain, MS/Extremity: Negative for injury and deformity. 16:59 Respiratory: Positive for cough, dyspnea on exertion. 16:59 Abdomen/GI: Positive for nausea, vomiting, and diarrhea. 16:59 All other systems are negative. Exam: 16:59 Constitutional: This is a well developed, well nourished patient who is awake, alert, ms3 and in no acute distress. Head/Face: Normocephalic, atraumatic. Neck: Trachea midline, no cervical lymphadenopathy. Supple, full range of motion without nuchal rigidity, or vertebral point tenderness. No Meningismus. Chest/axilla: Normal chest wall appearance and motion. Nontender with no deformity. Cardiovascular: Regular rate and rhythm with a normal S1 and S2. No gallops, murmurs, or rubs. Normal PMI, no JVD. No pulse deficits. Respiratory: Lungs have equal breath sounds bilaterally, clear to auscultation and percussion. No rales, rhonchi or wheezes noted. No increased work of breathing, no retractions or nasal flaring. Abdomen/GI: Soft, non-tender, with normal bowel sounds. No distension or tympany. No guarding or rebound. No evidence of tenderness throughout. Back: No spinal tenderness. No costovertebral tenderness. Full range of motion. Skin: Warm, dry with normal turgor. Normal color with no rashes, no lesions, and no evidence of cellulitis. MS/ Extremity: Pulses equal, no cyanosis. Neurovascular intact. Full, normal range of motion. Vital Signs: 16:53 BP 192 / 57; Pulse 60; Resp 16; Temp 97.9; Pulse Ox 99% on R/A; Weight 56.7 kg; Height iw 4 ft. 11 in. ; Pain 7/10; 17:00 BP 180 / 47; Pulse 55; Resp 16; Pulse Ox 98% ; ko1 19:46 BP 175 / 51; Pulse 57; Resp 17 S; Pulse Ox 98% on R/A; ha1 16:53 Body Mass Index 25.25 (56.70 kg, 149.86 cm) iw 16:53 Pain Scale: Adult iw MDM: 16:59 Differential diagnosis: pyelonephritis, UTI, PNA. ms3 17:04 Patient medically screened. ms3 19:22 Data reviewed: vital signs, nurses notes, lab test result(s), radiologic studies, and ms3 as a result, I will discharge patient. I considered the following discharge prescriptions or medication management in the emergency department Medications were administered in the Emergency Department. See MAR. Independent interpretation of the following test(s) in the Emergency Department X-Ray: My interpretation is Chest x-ray images reviewed by me do not reveal pneumonia. Counseling: I had a detailed discussion with the patient and/or guardian regarding the historical points, exam findings, and any diagnostic results supporting the discharge/admit diagnosis, lab results, radiology results, the need for outpatient follow up, to return to the emergency department if symptoms worsen or persist or if there are any questions or concerns that arise at home. Special discussion: I discussed with the patient/guardian in detail that at this point there is no indication for admission to the hospital. It is understood, however, that if the symptoms persist or worsen the patient needs to return immediately for re-evaluation. 19:22 ED course: Discussed labs, imaging with patient. Patient to follow-up with primary care ms3 physician in 2 to 3 days. Patient stands agrees with plan. All questions were answered. Return precautions discussed include worsening symptoms, or any other concerns. On reevaluation patient is alert and oriented, in no apparent distress, nontoxic-appearing, speaking full sentences. 05/23 17:04 Order name: CBC with Diff; Complete Time: 17:54 ms3 05/23 17:04 Order name: CMP; Complete Time: 17:54 ms3 05/23 17:04 Order name: Flu; Complete Time: 18:16 ms3 05/23 17:04 Order name: COVID-19 SARS RT PCR; Complete Time: 18:16 ms3 05/23 17:22 Order name: Urine W/Microscopic (UAM); Complete Time: 17:54 ko1 05/23 18:17 Order name: Potassium; Complete Time: 19:07 ms3 05/23 17:04 Order name: Chest Pa And Lat (2 Views) XRAY; Complete Time: 17:54 ms3 Administered Medications: No medications were administered Disposition Summary: 05/23/23 19:22 Discharge Ordered Location: Home ms3 Condition: Stable ms3 Diagnosis - Cough ms3 - Nasal congestion ms3 - Diarrhea, unspecified ms3 Followup: ms3 - With: Private Physician - When: 2 - 3 days - Reason: Recheck today's complaints Discharge Instructions: - Discharge Summary Sheet ms3 - Diarrhea, Adult ms3 - Cough, Adult ms3 Forms: - Medication Reconciliation Form ms3 - Thank You Letter ms3 - Antibiotic Education ms3 - Prescription Opioid Use ms3 - Patient Portal Instructions ms3 - Leadership Thank You Letter ms3 Signatures: Dispatcher [employer] Nighat Adnres, RN RN iw Richard Varela, DO DO ms3
--- NOTE | 2023-05-23 19:23 | ER ---
Nurse's Notes [facility] Name: Eloise Funes Age: 77 yrs Sex: Female : 1945 Arrival Date: 05/23/2023 Time: 16:48 Bed 7 Private MD: Diagnosis: Cough;Nasal congestion;Diarrhea, unspecified Presentation: 05/23 16:53 Chief complaint: Patient states: cough, congestion, diarrhea, side pain radiating to iw back on right side. Coronavirus screen: Client presents with at least one sign or symptom that may indicate coronavirus-19. Ebola Screen: Patient negative for fever greater than or equal to 101.5 degrees Fahrenheit, and additional compatible Ebola Virus Disease symptoms Patient denies exposure to infectious person. Patient denies travel to an Ebola-affected area in the 21 days before illness onset. No symptoms or risks identified at this time. Initial Sepsis Screen: Does the patient meet any 2 criteria? No. Patient's initial sepsis screen is negative. Does the patient have a suspected source of infection? No. Patient's initial sepsis screen is negative. Risk Assessment: Do you want to hurt yourself or someone else? Patient reports no desire to harm self or others. Onset of symptoms was May 16, 2023. 16:53 Method Of Arrival: Ambulatory iw 16:53 Acuity: DEIRDRE 3 iw Historical: - Allergies: 16:55 PENICILLINS; iw 16:55 shrimp; iw - Home Meds: 16:55 metformin 500 mg Oral tab 2 times per day [Active]; olmesartan 40 mg oral tablet daily iw [Active]; nebivolol 2.5 mg oral tablet daily [Active]; levothyroxine 75 mcg tablet daily [Active]; Farxiga 5 mg oral tablet daily [Active]; doxazosin 2 mg oral tablet daily [Active]; atorvastatin 10 mg oral tablet every evening [Active]; aspirin 81 mg Oral capsule daily [Active]; - PMHx: 16:55 "mini stroke"; Anxiety; Diabetes - NIDDM; Hypertension; iw - PSHx: 16:55 Cholecystectomy; hysterectomy; Tonsillectomy; iw - Immunization history:: Adult Immunizations up to date. - Social history:: Smoking status: Patient denies any tobacco usage or history of. Screenin:00 [facility] ED Fall Risk Assessment (Adult) History of falling in the last 3 months, ko1 including since admission No falls in past 3 months (0 pts) Confusion or Disorientation No (0 pts) Intoxicated or Sedated No (0 pts) Impaired Gait No (0 pts) Mobility Assist Device Used No (0 pt) Altered Elimination No (0 pt) Score/Fall Risk Level 0 - 2 = Low Risk Oriented to surroundings, Maintained a safe environment, Educated pt \\T\\ family on fall prevention, incl call for assistance when getting out of bed, Assessed \\T\\ reinforced patient's understanding of fall precautions, Provided non-skid footwear, Hourly rounding (assess needs \\T\\ fall precautionary measures) done, Used ambulatory aids as needed (educated on \\T\\ assisted with), Used gait belt as appropriate. Abuse screen: Denies threats or abuse. Denies injuries from another. Nutritional screening: No deficits noted. Tuberculosis screening: No symptoms or risk factors identified. Assessment: 17:00 General: Appears in no apparent distress. Behavior is calm, cooperative, appropriate ko1 for age. Pain: Complains of pain in abdomen. Neuro: No deficits noted. Cardiovascular: No deficits noted. Respiratory: No deficits noted. GI: Reports lower abdominal pain, diarrhea. : No deficits noted. EENT: No deficits noted. Derm: No deficits noted. Musculoskeletal: No deficits noted. 19:45 General: Appears comfortable, Behavior is calm, cooperative. Pain: Denies pain. Neuro: ha1 No deficits noted. Level of Consciousness is awake, alert, obeys commands, Oriented to person, place, time, situation. Cardiovascular: Patient's skin is warm and dry. Respiratory: Airway is patent Respiratory effort is even, unlabored, Respiratory pattern is regular, symmetrical. GI: Patient currently denies abdominal pain. 19:47 Reassessment: pt. States " I just took my night time medication for my high blood ha1 pressure". Vital Signs: 16:53 BP 192 / 57; Pulse 60; Resp 16; Temp 97.9; Pulse Ox 99% on R/A; Weight 56.7 kg; Height iw 4 ft. 11 in. ; Pain 7/10; 17:00 BP 180 / 47; Pulse 55; Resp 16; Pulse Ox 98% ; ko1 19:46 BP 175 / 51; Pulse 57; Resp 17 S; Pulse Ox 98% on R/A; ha1 16:53 Body Mass Index 25.25 (56.70 kg, 149.86 cm) iw 16:53 Pain Scale: Adult iw ED Course: 16:49 Patient arrived in ED. rg4 16:50 Richard Varela DO is Attending Physician. ms3 16:54 Triage completed. iw 16:57 Arm band placed on. iw 17:00 Patient has correct armband on for positive identification. Bed in low position. Call ko1 light in reach. Provided Education on: na. Client placed on continuous cardiac and pulse oximetry monitoring. NIBP monitoring applied. library monitor on. Door closed. Noise minimized. 17:15 Inserted saline lock: 20 gauge in right antecubital area, using aseptic technique. ko1 Blood collected. 17:18 COVID-19 SARS RT PCR Sent. ko1 17:18 Flu Sent. ko1 17:18 CMP Sent. ko1 17:18 CBC with Diff Sent. ko1 17:22 Dana Glover, RN is Primary Nurse. ko1 17:30 Chest Pa And Lat (2 Views) XRAY In Process Unspecified. EDMS 17:31 Urine W/Microscopic (UAM) Sent. ko1 18:31 Potassium Sent. ko1 19:48 No provider procedures requiring assistance completed. IV discontinued, intact, ha1 bleeding controlled, No redness/swelling at site. Pressure dressing applied. Administered Medications: No medications were administered Medication: 19:48 VIS not applicable for this client. ha1 Outcome: 19:22 Discharge ordered by . ms3 19:48 Discharged to home ambulatory, with family. ha1 19:48 Condition: stable 19:48 Discharge instructions given to patient, family, Instructed on discharge instructions, follow up and referral plans. Demonstrated understanding of instructions, follow-up care. 19:48 Patient left the ED. ha1 Signatures: Dispatcher [employer] EDMS Nighat Carranza RN RN iw Allison Barrera rg4 Richard Varela DO DO ms3 Karolina Bates RN RN ha1 Dana Glover, RN RN ko1 Corrections: (The following items were deleted from the chart) 16:58 16:53 BP 192 / 57; Pulse 60bpm; Resp 16bpm; Pulse Ox 99% RA; Temp 97.9F; iw iw
[2023-05-23 19:54] VITALS: TEMP 97.9
[2023-05-23 19:55] VITALS: O2SAT 98
[2023-05-23 19:57] VITALS: BP 175/51
== END 2023-05-23 19:48 | disposition home or self-care (01) ==
LOC: ER 16:48
DX: R05.9 Cough, unspecified (principal); R09.81 Nasal congestion; R19.7 Diarrhea, unspecified; I10 Essential (primary) hypertension; E11.9 Type 2 diabetes mellitus without complications; Z20.822 Contact with and (suspected) exposure to COVID-19; Z88.0 Allergy status to penicillin; Z91.013 Allergy to seafood; Z79.82 Long term (current) use of aspirin
CPT/HCPCS: 36415; 71046; 80053; 81001; 84132; 85025; 87635; 87804; 99284

== ENCOUNTER 2025-01-30 07:30 | Day surgery (SDC) | payer OTHER ==
--- NOTE | 2025-01-28 09:02 | RAD REPORT ---
Procedure: Chest Pa And Lat (2 Views) HISTORY: Preop for cardiac catheterization. Hypertension COMPARISON: 2022 FINDINGS: The lungs appear clear of acute infiltrate. No significant pleural effusion noted. The heart is probably borderline enlarged. . IMPRESSION: No acute abnormality is displayed.
[2025-01-28 09:06] LABS: Absolute Eosinophils 0.1 K/uL (0-0.5); Absolute Lymphocytes (CBC) 1.5 K/uL (0.7-4.9); Absolute Monocytes 0.5 K/uL (0.1-1.3); Absolute Neutrophil 6.4 K/uL (1.8-8.0); Basophils % 0.4 % (0-1.3); Eosinophils % 1.7 % (0-4.4); Hemoglobin 12.6 g/dL (12.0-15.0); Lymphocytes % 17.2 % (15.3-44.8); MCH 30.3 pg (27.0-35.0); MCV 89.1 fL (80-100); MPV 9.5 fL (7.6-11.3); Monocytes % 5.4 % (3.3-12.3); Neutrophils % 75.3 % (41.7-73.7); Platelets 59 thou/uL (152-406); RBC Red Blood Cell Count 4.16 M/uL (3.86-4.86); Red Cell Distribution Width 14.2 % (12.1-15.2)
[2025-01-28 09:21] LABS: Anion Gap 10.9 mEq/L (5.0-15.0); Potassium 4.9 mEq/L (3.5-5.1)
[2025-01-28 09:36] LABS: PT Prothrombin Time 10.9 SECONDS (10-13.0); PTT, Activated Partial Thromb 33.9 SECONDS (27.2-37.4); Protime INR 0.95
[2025-01-28 10:09] LABS: Blood Morphology Comment NOT SEEN (NOT SEEN); Platelet Estimate DECR; White Blood Cell Scan OK (OK)
[2025-01-30] MEDS ORDERED: NA CHLORIDE 0.9% 500 ML ONE (08:03)
[2025-01-30] MEDS: HYDRALAZINE HCL 20 MG/ML VIAL ONE (08:18)
[2025-01-30] MEDS ORDERED: HEPA 1000U/500MLS 2,000 UNIT/1,000 ML BAG IV ONE (08:25)
[2025-01-30] MEDS ORDERED: LIDOCAINE 1% 20 ML MDV ONE (08:25)
[2025-01-30] MEDS ORDERED: MIDAZOLAM HCL 2 MG/2 ML INJ ONE (08:57)
[2025-01-30] MEDS ORDERED: FENTANYL CITR 100 MCG/2 ML ONE (08:57)
[2025-01-30] MEDS ORDERED: METHYLPREDNISOLONE 125 MG INJ ONE (08:57)
[2025-01-30] MEDS ORDERED: DIPHENHYDRAMINE 50 MG/ML VIAL ONE (08:58)
[2025-01-30] MEDS ORDERED: HYDRALAZINE HCL 20 MG/ML VIAL ONE (09:39)
--- NOTE | 2025-01-30 10:23 | OP ---
Date of Procedure: 01/30/2025 Surgeon: ANKIT PETER Procedure Performed: Selective bilateral carotid angiogram. Indication: Carotid stenosis. Access: Right common femoral artery, 5-Mexican, closed with 5-Mexican Mynx closure device. Complications: None. Bleeding: Less than 50 mL. Total Sedation Time: 45 minutes, used fentanyl and Benadryl. Description Of Procedure: After risks, benefits, and alternatives were explained, the patient agreed to procedure and signed informed consent. The patient was brought into cardiac catheterization [facility], prepped and draped in usual sterile fashion. I accessed right common femoral artery using mi cropuncture kit, ultrasound guidance, fluoroscopy. Placed 5-Mexican Elwell sheath and took a 4-Fren Talenz 3DRC catheter into the aortic root. Engaged the right common carotid, took standard views and the left common carotid and took standard views. I removed the catheter and the sheath, and 5-Mexican Mynx closure device was used for closure with good hemostasis. Findings: 1. The right common carotid is normal. The distal right common carotid and internal common carotid h ave 60% to 70% stenosis. 2. Left common carotid is normal. The left internal carotid has about 40% stenosis. Conclusion: [id number] carotid stenosis, especially on the right. Recommendation: Close followup with ultrasound in 6 months. SR/MODL Voice ID: [id number] Report ID: [id number]
[2025-01-30 12:32] VITALS: BP 130/43; O2SAT 99
--- NOTE | 2025-02-03 12:44 | EKG ---
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
== END 2025-01-30 12:55 | disposition home or self-care (01) ==
LOC: CCL 07:30
PROVIDERS: ATTEND Internal Medicine
DX: I65.23 Occlusion and stenosis of bilateral carotid arteries (principal); I35.1 Nonrheumatic aortic (valve) insufficiency; I73.9 Peripheral vascular disease, unspecified; I10 Essential (primary) hypertension; E11.9 Type 2 diabetes mellitus without complications; E78.5 Hyperlipidemia, unspecified; Z79.82 Long term (current) use of aspirin; Z79.899 Other long term (current) drug therapy; Z88.0 Allergy status to penicillin; Z91.013 Allergy to seafood; Z82.49 Family history of ischemic heart disease and other diseases of the circulatory system
CPT/HCPCS: 93005; 85025; 80048; 36415; 85610; 82947; 85730; 71046; 36222; 76937; C1893; J0360 ×2; J2003; J1200; J3010; J2919; J1644; J7040; C1760; 99152; 99153; J2250